=== PATIENT | male | born 1965 | race African-American/Black ===

== ENCOUNTER 2022-05-21 09:04 | Inpatient (IN) | payer OTHER ==
[2022-05-21] MEDS ORDERED: Diltiazem 125 MG/25 ML ONE (09:15)
[2022-05-21] MEDS ORDERED: niCARdipine 25 MG/10 ML VIAL ONE ×2 (09:16→12:32)
[2022-05-21 09:39] LABS: #Basophils 0.1 thou/uL (0.0-0.2); #Eosinphils 0.1 thou/uL (0.0-0.7); #Lymphocytes 1.6 thou/uL (1.20-3.40); #Monocytes 0.9 thou/uL (0.11-0.59); #Neutrophils 10.4 thou/uL (1.40-6.50); %Basophils 0.5 % (0.0-1.0); %Eosinophils 0.8 % (0.0-10.0); %Lymphocytes 12.1 % (21.0-51.0); %Monocytes 6.9 % (0.0-10.0); %Neutrophils 79.7 % (42.0-75.0); Mean Corpuscular HGB CONC 33.9 g/dL (32.0-36.0); Mean Corpuscular Hemoglobin 30.7 pg (27.0-31.0); Mean Corpuscular Volume 90.6 fl (78.0-98.0); Mean Platelet Volume 11.8 fL (7.4-10.4); Platelet Count 166 10x3/uL (130-400); RBC Distribution Width 11.8 % (11.5-14.5); Red Blood Cell (RBC) Count 5.87 mill/uL (4.70-6.10)
[2022-05-21 09:53] LABS: PTT 32.8 sec (22.9-36.1); Prothrombin Time 13.5 sec (12.0-14.7)
[2022-05-21 10:00] LABS: ALT (SGPT) 25 U/L (8-55); AST (SGOT) 19 U/L (5-34); Albumin 3.9 g/dL (3.5-5.0); Alkaline Phosphatase 63 U/L (40-110); Anion Gap 11 mmol/L (10-20); BUN (Urea Nitrogen) 20 mg/dL (8.4-25.7); Calc. Creatinine Clearance 0 mL/min (70-130); Calcium 9.3 mg/dL (7.8-10.44); Carbon Dioxide 25 mmol/L (22-29); Chloride 105 mmol/L (98-107); Estimated GFR 32; Globulin 3.4 g/dL (2.4-3.5); Glucose 101 mg/dL (70-105); Potassium 3.2 mmol/L (3.5-5.1); Protein, Total 7.3 g/dL (6.0-8.3); Sodium 138 mmol/L (136-145)
[2022-05-21] MEDS ORDERED: Electrolyte Replacement Protocol 1 EACH IVPB ONE (10:08)
[2022-05-21] MEDS ORDERED: Ondansetron PF 4 MG/2 ML Vial IVP PRN (10:13)
[2022-05-21] MEDS ORDERED: Ondansetron ODT 4 MG TAB PO PRN (10:13)
[2022-05-21 10:14] LABS: Bacteria/HPF None Seen HPF (None Seen); Bilirubin Negative (Negative); Blood, Urine Trace (Negative); Clarity Clear (Clear); Glucose, Urine (Dipstick) Normal (Negative); Ketone, Urine Negative (Negative); Leukocyte Negative Leu/uL (Negative); Nitrite Negative (Negative); Protein, Urine (Dipstick) 300 mg/dL (Neg-Trace); RBC/HPF 0-3 HPF (0-3); Specific Gravity, Urine 1.012 (1.002-1.036); Squamous Epithelial 0-3 HPF (0-3); Urobilinogen Normal mg/dL (Less than 2); WBC/HPF 0-3 HPF (0-3); pH, Urine 7.5 (5.0-9.0)
[2022-05-21 10:39] LABS: CKMB 3.4 ng/mL (0-6.6)
[2022-05-21] MEDS ORDERED: Electrolyte Replacement Protocol FS PRN (10:45)
[2022-05-21] MEDS ORDERED: Dextrose 50% Abboject 50 ML SYRINGE ONE (11:02)
[2022-05-21] MEDS ORDERED: Rocuronium Bromide 10 MG/ML (10ML VIAL) ONE (11:08)
[2022-05-21] MEDS ORDERED: Midazolam HCl 2 mg/2 ml Vial ONE ×2 (11:17→11:18)
[2022-05-21] MEDS ORDERED: Propofol 1,000 MG/100 ML VIAL IV ONE (11:18)
[2022-05-21] MEDS ORDERED: Fentanyl 100 MCG/2 ML VIAL ONE (11:18)
[2022-05-21] MEDS ORDERED: Fentanyl CADD 100 ML IV SCH ×2 (11:30→12:45)
[2022-05-21 11:31] LABS: SARS-CoV-2 NAA Rapid Test Not Detected (NotDetected)
[2022-05-21 12:13] LABS: Actual Bicarbonate (HCO3a) 26.7 mEq/L (22-28); Analyzer IN Cardio ER; Base Excess (BEa) 2.5 mEq/L (-2.0 to +3.0); CO2 Tension 39.6 mmHg (35.0-45.0); Calcium, Ionized (arterial) 1.18 mmol/L (1.12-1.30); Carboxyhemoglobin (COHb) 0.2 gm% (0.0-3.0); Hemoglobin (Hb) 17.9 g/dL (14.0-18.0); O2 Tension (PaO2), arterial 87.6 mmHg (80.0-100.0); pH, Arterial 7.45 (7.35-7.45)
[2022-05-21 12:15] LABS: Puncture Site RRA
[2022-05-21] MEDS ORDERED: Ventilator Sedation Protocol 1 EACH FS ONE (12:20)
[2022-05-21] MEDS ORDERED: niCARdipine 40MG In NaCl 40 MG/200 ML BAG IVPB SCH (12:30)
[2022-05-21] MEDS ORDERED: DISCONTINUE PREVIOUS NARCOTIC PAIN MEDICATIONS AND BENZODIAZEPINES FS SCH (12:45)
[2022-05-21] MEDS ORDERED: Fentanyl BOLUS 250 ML IVPB PRN (12:45)
[2022-05-21] MEDS ORDERED: Propofol BOLUS 1,000 MG/100 ML VIAL IV PRN (12:45)
[2022-05-21] MEDS ORDERED: niCARdipine 25 MG in Sodium Chloride 0.9% 250 ML 250 ML IVPB SCH (13:00)
[2022-05-21] MEDS: Potassium Chloride 20 MEQ in Premix Bag 1 BAG IVPB SCH ×2 (13:52→13:55)
[2022-05-21] MEDS: Midazolam HCl 2 mg/2 ml Vial SLOW IVP PRN (13:53)
[2022-05-21] MEDS: Sodium Chloride 0.9% 1,000 ML IV SCH (13:55)
[2022-05-21] MEDS: Propofol 1,000 MG/100 ML VIAL IV PRN ×2 (15:57→20:20)
[2022-05-21 17:34] LABS: Potassium 3.6 mmol/L (3.5-5.1)
[2022-05-21 19:04] LABS: Troponin I 0.248 ng/mL (< 0.028)
[2022-05-21] MEDS: Atorvastatin Calcium 40 MG TAB PO SCH (20:37)
[2022-05-21] MEDS: Terazosin HCl 5 MG CAP PO SCH (20:37)
[2022-05-21] MEDS: Carvedilol 25 MG TAB PO SCH (20:37)
[2022-05-21] MEDS: NIFEdipine XL 60 MG TAB PO SCH (20:37)
[2022-05-21 21:30] LABS: Troponin I 0.258 ng/mL (< 0.028)
[2022-05-22] MEDS: Propofol 1,000 MG/100 ML VIAL IV PRN ×3 (00:24→15:09)
[2022-05-22] MEDS: Sodium Chloride 0.9% 1,000 ML IV SCH (03:09)
[2022-05-22] MEDS: Midazolam HCl 2 mg/2 ml Vial SLOW IVP PRN (03:18)
[2022-05-22 03:59] LABS: #Basophils 0.1 thou/uL (0.0-0.2); #Eosinphils 0.1 thou/uL (0.0-0.7); #Lymphocytes 1.4 thou/uL (1.20-3.40); #Monocytes 1.3 thou/uL (0.11-0.59); %Basophils 0.6 % (0.0-1.0); %Eosinophils 0.8 % (0.0-10.0); %Lymphocytes 10.7 % (21.0-51.0); %Monocytes 10.3 % (0.0-10.0); %Neutrophils 77.6 % (42.0-75.0); Hemoglobin 15.6 g/dL (14.0-18.0); Mean Corpuscular HGB CONC 32.3 g/dL (32.0-36.0); Mean Corpuscular Hemoglobin 29.6 pg (27.0-31.0); Mean Corpuscular Volume 91.7 fl (78.0-98.0); Mean Platelet Volume 11.7 fL (7.4-10.4); Platelet Count 161 10x3/uL (130-400); RBC Distribution Width 11.9 % (11.5-14.5); Red Blood Cell (RBC) Count 5.28 mill/uL (4.70-6.10); White Blood Cell (WBC) Count 12.9 10x3/uL (4.8-10.8)
[2022-05-22 04:22] LABS: ALT (SGPT) 14 U/L (8-55); AST (SGOT) 12 U/L (5-34); Albumin 3.2 g/dL (3.5-5.0); Alkaline Phosphatase 53 U/L (40-110); Anion Gap 11 mmol/L (10-20); BUN (Urea Nitrogen) 22 mg/dL (8.4-25.7); Bilirubin, Total 1.3 mg/dL (0.2-1.2); Calc. Creatinine Clearance 41 mL/min (70-130); Calcium 8.6 mg/dL (7.8-10.44); Carbon Dioxide 23 mmol/L (22-29); Chloride 107 mmol/L (98-107); Estimated GFR 29; Globulin 2.9 g/dL (2.4-3.5); Glucose 90 mg/dL (70-105); Potassium 3.3 mmol/L (3.5-5.1); Protein, Total 6.1 g/dL (6.0-8.3); Sodium 138 mmol/L (136-145)
[2022-05-22 07:15] LABS: Actual Bicarbonate (HCO3a) 25.8 mEq/L (22-28); Base Excess (BEa) 2.1 mEq/L (-2.0 to +3.0); CO2 Tension 37.6 mmHg (35.0-45.0); Calcium, Ionized (arterial) 1.21 mmol/L (1.12-1.30); Carboxyhemoglobin (COHb) 0.5 gm% (0.0-3.0); Hemoglobin (Hb) 16.5 g/dL (14.0-18.0); O2 Tension (PaO2), arterial 79.9 mmHg (80.0-100.0); Potassium - ABG Lab 3.32 mmol/L (3.70-5.30); pH, Arterial 7.46 (7.35-7.45)
[2022-05-22 07:17] LABS: Puncture Site RRA
[2022-05-22] MEDS ORDERED: Fentanyl CADD 100 ML ONE (07:27)
[2022-05-22] MEDS: Acetaminophen 325 MG TAB PO PRN ×2 (07:29→19:52)
[2022-05-22] MEDS: NIFEdipine XL 60 MG TAB PO SCH ×2 (07:30→19:53)
[2022-05-22] MEDS: Famotidine/PF 20 mg/2ml Vial SLOW IVP SCH (07:30)
[2022-05-22] MEDS: Carvedilol 25 MG TAB PO SCH ×2 (07:30→19:53)
[2022-05-22] MEDS ORDERED: Sodium Chloride 0.9% 500 ML IV SCH (07:45)
[2022-05-22] MEDS ORDERED: Potassium Chloride 20 MEQ TAB PO SCH (09:00)
[2022-05-22] MEDS ORDERED: cloNIDine 0.3mg/24 Hour PATCH TD SCH (11:15)
[2022-05-22] MEDS ORDERED: Electrolyte Replacement Protocol 1 EACH FS SCH ×2 (11:30)
[2022-05-22] MEDS: Lactated Ringer's 1,000 ML IV SCH ×2 (11:55→23:13)
[2022-05-22 12:20] LABS: Anion Gap 10 mmol/L (10-20); BUN (Urea Nitrogen) 25 mg/dL (8.4-25.7); Calc. Creatinine Clearance 36 mL/min (70-130); Calcium 8.6 mg/dL (7.8-10.44); Carbon Dioxide 22 mmol/L (22-29); Chloride 107 mmol/L (98-107); Estimated GFR 26; Glucose 111 mg/dL (70-105); Potassium 3.4 mmol/L (3.5-5.1); Sodium 136 mmol/L (136-145)
[2022-05-22] MEDS ORDERED: Lactated Ringer's 500 ML IV SCH (12:45)
[2022-05-22] MEDS: Potassium Chloride 20 MEQ TAB PO PRN (16:31)
[2022-05-22] MEDS: Atorvastatin Calcium 40 MG TAB PO SCH (19:53)
[2022-05-22] MEDS: Terazosin HCl 5 MG CAP PO SCH (19:53)
[2022-05-23 04:29] LABS: ALT (SGPT) 15 U/L (8-55); AST (SGOT) 18 U/L (5-34); Albumin 2.8 g/dL (3.5-5.0); Alkaline Phosphatase 47 U/L (40-110); Anion Gap 11 mmol/L (10-20); BUN (Urea Nitrogen) 30 mg/dL (8.4-25.7); Bilirubin, Total 1.3 mg/dL (0.2-1.2); Calc. Creatinine Clearance 39 mL/min (70-130); Calcium 8.9 mg/dL (7.8-10.44); Carbon Dioxide 21 mmol/L (22-29); Chloride 108 mmol/L (98-107); Estimated GFR 28; Glucose 124 mg/dL (70-105); Potassium 3.5 mmol/L (3.5-5.1); Protein, Total 5.8 g/dL (6.0-8.3); Sodium 136 mmol/L (136-145)
[2022-05-23 04:53] LABS: #Eosinphils 0.1 thou/uL (0.0-0.7); #Lymphocytes 1.3 thou/uL (1.20-3.40); #Monocytes 1.4 thou/uL (0.11-0.59); #Neutrophils 11.8 thou/uL (1.40-6.50); %Basophils 0.1 % (0.0-1.0); %Eosinophils 0.5 % (0.0-10.0); %Lymphocytes 8.7 % (21.0-51.0); %Monocytes 9.5 % (0.0-10.0); %Neutrophils 81.2 % (42.0-75.0); Hemoglobin 15.1 g/dL (14.0-18.0); Large Platelets SLIGHT; MDiff Complete? YES; Mean Corpuscular HGB CONC 32.9 g/dL (32.0-36.0); Mean Corpuscular Hemoglobin 30.1 pg (27.0-31.0); Mean Corpuscular Volume 91.5 fl (78.0-98.0); Mean Platelet Volume 12.3 fL (7.4-10.4); Platelet Count 144 10x3/uL (130-400); Platelet Morphology Comment Appears Adequate; RBC Distribution Width 11.8 % (11.5-14.5); Red Blood Cell (RBC) Count 5.02 mill/uL (4.70-6.10); White Blood Cell (WBC) Count 14.5 10x3/uL (4.8-10.8)
[2022-05-23] MEDS: Propofol 1,000 MG/100 ML VIAL IV PRN (05:23)
[2022-05-23 06:53] LABS: Actual Bicarbonate (HCO3a) 25.1 mEq/L (22-28); Base Excess (BEa) 1.2 mEq/L (-2.0 to +3.0); CO2 Tension 37.4 mmHg (35.0-45.0); Calcium, Ionized (arterial) 1.26 mmol/L (1.12-1.30); Carboxyhemoglobin (COHb) 0.7 gm% (0.0-3.0); Hemoglobin (Hb) 15.7 g/dL (14.0-18.0); O2 Tension (PaO2), arterial 100.1 mmHg (80.0-100.0); Potassium - ABG Lab 3.71 mmol/L (3.70-5.30); pH, Arterial 7.44 (7.35-7.45)
[2022-05-23 06:56] LABS: Puncture Site RRA
[2022-05-23] MEDS: Lactated Ringer's 1,000 ML IV SCH (08:06)
[2022-05-23] MEDS: Acetaminophen 325 MG TAB PO PRN (08:06)
[2022-05-23] MEDS: Famotidine/PF 20 mg/2ml Vial SLOW IVP SCH (08:07)
[2022-05-23] MEDS: Potassium Chloride 20 MEQ TAB PO PRN (08:07)
[2022-05-23] MEDS: Carvedilol 25 MG TAB PO SCH ×2 (08:07→20:49)
[2022-05-23] MEDS: NIFEdipine XL 60 MG TAB PO SCH (08:07)
[2022-05-23] MEDS ORDERED: Amlodipine 5 MG TAB PO SCH (19:45)
[2022-05-23] MEDS: Atorvastatin Calcium 40 MG TAB PO SCH (20:50)
[2022-05-23] MEDS: Bisacodyl 5 MG TAB PO PRN (20:50)
[2022-05-23] MEDS: Terazosin HCl 5 MG CAP PO SCH (20:50)
[2022-05-24 03:47] LABS: #Eosinphils 0.1 thou/uL (0.0-0.7); #Monocytes 1.3 thou/uL (0.11-0.59); #Neutrophils 10.9 thou/uL (1.40-6.50); %Basophils 0.2 % (0.0-1.0); %Eosinophils 0.9 % (0.0-10.0); %Lymphocytes 7.6 % (21.0-51.0); %Monocytes 9.8 % (0.0-10.0); %Neutrophils 81.6 % (42.0-75.0); Hemoglobin 14.4 g/dL (14.0-18.0); Mean Corpuscular HGB CONC 32.4 g/dL (32.0-36.0); Mean Corpuscular Hemoglobin 29.7 pg (27.0-31.0); Mean Corpuscular Volume 91.7 fl (78.0-98.0); Mean Platelet Volume 12.9 fL (7.4-10.4); Platelet Count 143 10x3/uL (130-400); RBC Distribution Width 11.9 % (11.5-14.5); Red Blood Cell (RBC) Count 4.87 mill/uL (4.70-6.10); White Blood Cell (WBC) Count 13.4 10x3/uL (4.8-10.8)
[2022-05-24 04:01] LABS: Anion Gap 11 mmol/L (10-20); BUN (Urea Nitrogen) 31 mg/dL (8.4-25.7); Calc. Creatinine Clearance 46 mL/min (70-130); Calcium 8.8 mg/dL (7.8-10.44); Carbon Dioxide 22 mmol/L (22-29); Chloride 111 mmol/L (98-107); Estimated GFR 32; Glucose 112 mg/dL (70-105); Potassium 3.8 mmol/L (3.5-5.1); Sodium 140 mmol/L (136-145)
[2022-05-24] MEDS: hydrALAZINE 20 MG/ML VIAL SLOW IVP PRN ×4 (06:48→12:30)
[2022-05-24 07:20] LABS: Actual Bicarbonate (HCO3a) 24.4 mEq/L (22-28); Base Excess (BEa) 1.2 mEq/L (-2.0 to +3.0); Calcium, Ionized (arterial) 1.26 mmol/L (1.12-1.30); Carboxyhemoglobin (COHb) 0.5 gm% (0.0-3.0); Hemoglobin (Hb) 15.1 g/dL (14.0-18.0); O2 Tension (PaO2), arterial 129.5 mmHg (80.0-100.0); Potassium - ABG Lab 3.82 mmol/L (3.70-5.30); pH, Arterial 7.46 (7.35-7.45)
[2022-05-24 07:22] LABS: Puncture Site RRA
[2022-05-24] MEDS: Famotidine/PF 20 mg/2ml Vial SLOW IVP SCH (07:39)
[2022-05-24] MEDS: Potassium Chloride 20 MEQ TAB PO PRN (07:40)
[2022-05-24] MEDS: Amlodipine 5 MG TAB PO SCH (07:41)
[2022-05-24] MEDS: Lactated Ringer's 1,000 ML IV SCH (07:41)
[2022-05-24] MEDS: Acetaminophen 325 MG TAB PO PRN (07:41)
[2022-05-24] MEDS: Carvedilol 25 MG TAB PO SCH ×2 (07:41→20:16)
[2022-05-24] MEDS ORDERED: levETIRAcetam 500 MG/5 ML VIAL SLOW IVP SCH ×2 (12:15→16:30)
[2022-05-24] MEDS: Cefepime 1 GM in Sodium Chloride 0.9% 100 ML IVPB SCH (14:12)
[2022-05-24] MEDS ORDERED: Vancomycin 1.5 GRAM/300 ML BAG 1.5 GM in Premix Bag 1 BAG IVPB SCH (15:00)
[2022-05-24] MEDS: niCARdipine 25 MG in Sodium Chloride 0.9% 250 ML 250 ML IVPB SCH ×4 (15:38→22:33)
[2022-05-24] MEDS: Acetaminophen 650 MG Suppository PR PRN ×2 (18:53→22:55)
[2022-05-24] MEDS: Atorvastatin Calcium 40 MG TAB PO SCH (20:16)
[2022-05-24] MEDS: Terazosin HCl 5 MG CAP PO SCH (20:17)
[2022-05-24] MEDS: levETIRAcetam 500 MG/5 ML VIAL SLOW IVP SCH (20:18)
[2022-05-24] MEDS ORDERED: Ipratropium/Albuterol 3 ML NEB NEB PRN (20:28)
[2022-05-24] MEDS ORDERED: Cefepime 1 GM in Sodium Chloride 0.9% 100 ML IVPB SCH (21:00)
[2022-05-24] MEDS ORDERED: Vancomycin HCl 1.25 GM in Sodium Chloride 0.9% 250 ML 300 ML IVPB SCH (21:00)
[2022-05-25] MEDS: Cefepime 1 GM in Sodium Chloride 0.9% 100 ML IVPB SCH ×2 (01:13→14:00)
[2022-05-25] MEDS: niCARdipine 25 MG in Sodium Chloride 0.9% 250 ML 250 ML IVPB SCH ×7 (01:13→21:50)
[2022-05-25 04:14] LABS: Anion Gap 18 mmol/L (10-20); BUN (Urea Nitrogen) 30 mg/dL (8.4-25.7); Calc. Creatinine Clearance 53 mL/min (70-130); Calcium 9.4 mg/dL (7.8-10.44); Carbon Dioxide 15 mmol/L (22-29); Chloride 112 mmol/L (98-107); Estimated GFR 38; Glucose 86 mg/dL (70-105); Potassium 4.1 mmol/L (3.5-5.1); Sodium 141 mmol/L (136-145)
[2022-05-25] MEDS ORDERED: Potassium Bicarbonate/Cit Ac 20 MEQ TAB PO PRN (07:45)
[2022-05-25] MEDS: Lactated Ringer's 1,000 ML IV SCH (08:36)
[2022-05-25] MEDS: levETIRAcetam 500 MG/5 ML VIAL SLOW IVP SCH ×2 (08:36→21:42)
[2022-05-25] MEDS: Famotidine/PF 20 mg/2ml Vial SLOW IVP SCH (08:36)
[2022-05-25] MEDS: Amlodipine 5 MG TAB PO SCH (08:39)
[2022-05-25] MEDS: Carvedilol 25 MG TAB PO SCH ×2 (08:40→21:42)
[2022-05-25] MEDS: Acetaminophen 650 MG Suppository PR PRN (12:10)
[2022-05-25] MEDS: Acetaminophen 325 MG TAB PO PRN ×2 (16:39→21:42)
[2022-05-25] MEDS: VANCOMYCIN 1.25 GM/250 ML BAG 1.25 GM in Premix Bag 1 BAG IVPB SCH (18:46)
[2022-05-25] MEDS: Atorvastatin Calcium 40 MG TAB PO SCH (21:42)
[2022-05-25] MEDS: Terazosin HCl 5 MG CAP PO SCH (22:00)
[2022-05-26] MEDS: Acetaminophen 325 MG TAB PO PRN ×4 (02:53→20:27)
[2022-05-26] MEDS: Cefepime 1 GM in Sodium Chloride 0.9% 100 ML IVPB SCH ×2 (02:55→13:03)
[2022-05-26] MEDS: niCARdipine 25 MG in Sodium Chloride 0.9% 250 ML 250 ML IVPB SCH ×7 (03:19→21:30)
[2022-05-26] MEDS: Lactated Ringer's 1,000 ML IV SCH (03:27)
[2022-05-26 07:45] LABS: Anion Gap 12 mmol/L (10-20); BUN (Urea Nitrogen) 37 mg/dL (8.4-25.7); Calc. Creatinine Clearance 63 mL/min (70-130); Carbon Dioxide 19 mmol/L (22-29); Chloride 116 mmol/L (98-107); Estimated GFR 43; Glucose 126 mg/dL (70-105); Potassium 3.6 mmol/L (3.5-5.1); Sodium 143 mmol/L (136-145)
[2022-05-26 07:56] LABS: #Eosinphils 0.1 thou/uL (0.0-0.7); #Lymphocytes 1.2 thou/uL (1.20-3.40); %Basophils 0.2 % (0.0-1.0); %Eosinophils 1.2 % (0.0-10.0); %Lymphocytes 10.2 % (21.0-51.0); %Monocytes 8.9 % (0.0-10.0); %Neutrophils 79.6 % (42.0-75.0); Hemoglobin 14.9 g/dL (14.0-18.0); Mean Corpuscular HGB CONC 32.3 g/dL (32.0-36.0); Mean Corpuscular Hemoglobin 29.4 pg (27.0-31.0); Mean Platelet Volume 12.6 fL (7.4-10.4); Platelet Count 184 10x3/uL (130-400); RBC Distribution Width 11.8 % (11.5-14.5); Red Blood Cell (RBC) Count 5.08 mill/uL (4.70-6.10); White Blood Cell (WBC) Count 11.3 10x3/uL (4.8-10.8)
[2022-05-26] MEDS: Amlodipine 5 MG TAB PO SCH (09:01)
[2022-05-26] MEDS: Famotidine/PF 20 mg/2ml Vial SLOW IVP SCH (09:02)
[2022-05-26] MEDS: Carvedilol 25 MG TAB PO SCH ×2 (09:02→20:25)
[2022-05-26] MEDS: levETIRAcetam 500 MG/5 ML VIAL SLOW IVP SCH ×2 (09:02→20:26)
[2022-05-26] MEDS ORDERED: Amlodipine 5 MG TAB PO SCH (12:45)
[2022-05-26] MEDS ORDERED: Amlodipine 10 MG TAB PO SCH (12:45)
[2022-05-26] MEDS ORDERED: hydrALAZINE 25 MG TAB PO SCH ×3 (15:00→21:45)
[2022-05-26 16:17] LABS: Vancomycin, Trough 11.6 ug/mL
[2022-05-26 16:36] LABS: Bilirubin Negative (Negative); Blood, Urine Trace (Negative); Glucose, Urine (Dipstick) Negative (Negative); Ketone, Urine Trace mg/dL (Negative); Leukocyte Negative (Negative); Nitrite Negative (Negative); Protein, Urine (Dipstick) 100 mg/dL (Neg-Trace); Specific Gravity, Urine 1.025 (1.005-1.030); Urobilinogen 0.2 mg/dL (Less than 2); pH, Urine 5.5 (5.0-9.0)
[2022-05-26 16:38] LABS: CAUTI Indications for Culture Fever or rigors; Clarity Clear (Clear); Urine Culture Reflex No No
[2022-05-26 16:57] LABS: Bacteria/HPF None Seen HPF (None Seen); RBC/HPF None Seen HPF (0-3); Squamous Epithelial None Seen HPF (0-3); WBC/HPF None Seen HPF (0-3)
[2022-05-26] MEDS: VANCOMYCIN 1.25 GM/250 ML BAG 1.25 GM in Premix Bag 1 BAG IVPB SCH (17:42)
[2022-05-26] MEDS: Vancomycin 1.5 GRAM/300 ML BAG 1.5 GM in Premix Bag 1 BAG IVPB SCH (18:14)
[2022-05-26] MEDS: hydrALAZINE 20 MG/ML VIAL SLOW IVP PRN (18:44)
[2022-05-26] MEDS: Morphine 4 MG/ML VIAL SLOW IVP PRN (18:53)
[2022-05-26] MEDS: Atorvastatin Calcium 40 MG TAB PO SCH (20:25)
[2022-05-26] MEDS: Terazosin HCl 5 MG CAP PO SCH (20:27)
[2022-05-27] MEDS: niCARdipine 25 MG in Sodium Chloride 0.9% 250 ML 250 ML IVPB SCH ×2 (00:10→08:21)
[2022-05-27] MEDS: Morphine 4 MG/ML VIAL SLOW IVP PRN ×3 (02:10→09:14)
[2022-05-27] MEDS: Acetaminophen 650 MG Suppository PR PRN ×2 (02:10→05:40)
[2022-05-27] MEDS: Cefepime 1 GM in Sodium Chloride 0.9% 100 ML IVPB SCH ×2 (02:45→13:37)
[2022-05-27 04:18] LABS: Actual Bicarbonate (HCO3a) 19.3 mEq/L (22-28); Base Excess (BEa) -2.9 mEq/L (-2.0 to +3.0); CO2 Tension 27.6 mmHg (35.0-45.0); Hemoglobin (Hb) 14.9 g/dL (14.0-18.0); O2 Tension (PaO2), arterial 77.5 mmHg (80.0-100.0); pH, Arterial 7.46 (7.35-7.45)
[2022-05-27 04:19] LABS: Carboxyhemoglobin (COHb) 0.8 gm% (0.0-3.0); Potassium - ABG Lab 3.85 mmol/L (3.70-5.30)
[2022-05-27 04:20] LABS: Calcium, Ionized (arterial) 1.25 mmol/L (1.12-1.30); Puncture Site LRA
[2022-05-27] MEDS ORDERED: OLANZapine 10 MG VIAL IM SCH (05:15)
[2022-05-27] MEDS: Famotidine/PF 20 mg/2ml Vial SLOW IVP SCH (08:20)
[2022-05-27] MEDS: levETIRAcetam 500 MG/5 ML VIAL SLOW IVP SCH ×2 (08:20→20:21)
[2022-05-27] MEDS: hydrALAZINE 25 MG TAB PO SCH ×3 (08:20→20:20)
[2022-05-27] MEDS: Carvedilol 25 MG TAB PO SCH ×2 (08:21→20:21)
[2022-05-27] MEDS: Amlodipine 10 MG TAB PO SCH (08:21)
[2022-05-27 08:38] LABS: Actual Bicarbonate (HCO3a) 21.4 mEq/L (22-28); Base Excess (BEa) 0.1 mEq/L (-2.0 to +3.0); CO2 Tension 26.8 mmHg (35.0-45.0); Calcium, Ionized (arterial) 1.26 mmol/L (1.12-1.30); Carboxyhemoglobin (COHb) 0.6 gm% (0.0-3.0); Hemoglobin (Hb) 14.8 g/dL (14.0-18.0); O2 Tension (PaO2), arterial 64.2 mmHg (80.0-100.0); Potassium - ABG Lab 3.66 mmol/L (3.70-5.30); pH, Arterial 7.52 (7.35-7.45)
[2022-05-27 08:41] LABS: Puncture Site RRA
[2022-05-27] MEDS ORDERED: Dexmedetomidine In 0.9 % NaCl 100 ML IVPB SCH (10:00)
[2022-05-27] MEDS: Dextrose 5%-Lactated Ringers 1,000 ML IV SCH ×3 (10:03→17:05)
[2022-05-27 12:13] LABS: Anion Gap 12 mmol/L (10-20); BUN (Urea Nitrogen) 38 mg/dL (8.4-25.7); Calc. Creatinine Clearance 59 mL/min (70-130); Calcium 9.1 mg/dL (7.8-10.44); Carbon Dioxide 18 mmol/L (22-29); Chloride 117 mmol/L (98-107); Estimated GFR 39; Glucose 129 mg/dL (70-105); Sodium 143 mmol/L (136-145)
[2022-05-27] MEDS ORDERED: Furosemide 100 MG/10 ML VIAL SLOW IVP SCH (13:30)
[2022-05-27] MEDS: Acetaminophen 325 MG TAB PO PRN ×2 (13:37→18:14)
[2022-05-27] MEDS: Vancomycin 1.5 GRAM/300 ML BAG 1.5 GM in Premix Bag 1 BAG IVPB SCH (17:10)
[2022-05-27] MEDS: cloNIDine 0.1 MG TAB PO SCH (18:14)
[2022-05-27] MEDS: Atorvastatin Calcium 40 MG TAB PO SCH (20:21)
[2022-05-27] MEDS: Terazosin HCl 5 MG CAP PO SCH (20:21)
[2022-05-28] MEDS: Cefepime 1 GM in Sodium Chloride 0.9% 100 ML IVPB SCH (01:03)
[2022-05-28] MEDS: hydrALAZINE 20 MG/ML VIAL SLOW IVP PRN (03:21)
[2022-05-28 03:46] LABS: #Eosinphils 0.1 thou/uL (0.0-0.7); #Lymphocytes 1.3 thou/uL (1.20-3.40); #Monocytes 1.5 thou/uL (0.11-0.59); #Neutrophils 11.8 thou/uL (1.40-6.50); %Basophils 0.2 % (0.0-1.0); %Eosinophils 0.4 % (0.0-10.0); %Lymphocytes 8.6 % (21.0-51.0); %Neutrophils 80.8 % (42.0-75.0); Hemoglobin 13.9 g/dL (14.0-18.0); Mean Corpuscular HGB CONC 33.2 g/dL (32.0-36.0); Mean Corpuscular Hemoglobin 30.2 pg (27.0-31.0); Mean Platelet Volume 12.3 fL (7.4-10.4); Platelet Count 202 10x3/uL (130-400); RBC Distribution Width 12.1 % (11.5-14.5); White Blood Cell (WBC) Count 14.5 10x3/uL (4.8-10.8)
[2022-05-28 03:54] LABS: Anion Gap 13 mmol/L (10-20); BUN (Urea Nitrogen) 47 mg/dL (8.4-25.7); Calc. Creatinine Clearance 51 mL/min (70-130); Calcium 9.1 mg/dL (7.8-10.44); Carbon Dioxide 19 mmol/L (22-29); Chloride 117 mmol/L (98-107); Estimated GFR 33; Glucose 134 mg/dL (70-105); Potassium 3.8 mmol/L (3.5-5.1); Sodium 145 mmol/L (136-145)
[2022-05-28] MEDS: Morphine 4 MG/ML VIAL SLOW IVP PRN (04:27)
[2022-05-28] MEDS ORDERED: Labetalol HCl 100 MG/20 ML VIAL SLOW IVP SCH (05:15)
[2022-05-28] MEDS ORDERED: Labetalol HCl 100 MG/20 ML VIAL SLOW IVP PRN (07:37)
[2022-05-28] MEDS ORDERED: hydrOXYzine 10 MG TAB PO PRN (08:01)
[2022-05-28] MEDS ORDERED: Acetaminophen 325 MG TAB PO SCH (08:15)
[2022-05-28] MEDS: Acetaminophen 650 MG/20.3 ML UDCUP PO SCH ×3 (08:50→20:28)
[2022-05-28] MEDS: hydrALAZINE 25 MG TAB PO SCH ×3 (08:52→20:11)
[2022-05-28] MEDS: cloNIDine 0.1 MG TAB PO SCH ×2 (08:52→20:28)
[2022-05-28] MEDS: Famotidine/PF 20 mg/2ml Vial SLOW IVP SCH (08:53)
[2022-05-28] MEDS: levETIRAcetam 500 MG/5 ML VIAL SLOW IVP SCH ×2 (08:53→20:15)
[2022-05-28] MEDS: Carvedilol 25 MG TAB PO SCH ×2 (08:54→20:11)
[2022-05-28] MEDS: Amlodipine 10 MG TAB PO SCH (08:54)
[2022-05-28] MEDS: ALPRAZolam 0.25 MG TAB PO SCH ×2 (09:00→20:12)
[2022-05-28] MEDS ORDERED: ALPRAZolam 0.25 MG TAB PO SCH (10:30)
[2022-05-28] MEDS ORDERED: Polyethylene Glycol 3350 17 GM Packet PER TUBE PRN (10:50)
[2022-05-28] MEDS: Dextrose 5%-Lactated Ringers 1,000 ML IV SCH (16:22)
[2022-05-28] MEDS ORDERED: Lactated Ringer's 1,000 ML IV SCH (16:30)
[2022-05-28] MEDS: Amoxicillin/Potassium Clav 875 MG TAB PO SCH (20:11)
[2022-05-28] MEDS: Terazosin HCl 5 MG CAP PO SCH (20:11)
[2022-05-28] MEDS: Atorvastatin Calcium 40 MG TAB PO SCH (20:11)
[2022-05-29] MEDS: Labetalol HCl 100 MG/20 ML VIAL SLOW IVP PRN (03:09)
[2022-05-29] MEDS: Acetaminophen 650 MG/20.3 ML UDCUP PO SCH ×4 (03:10→20:30)
[2022-05-29] MEDS: Morphine 4 MG/ML VIAL SLOW IVP PRN (03:21)
[2022-05-29] MEDS: Bisacodyl 5 MG TAB PO PRN (03:42)
[2022-05-29 07:26] LABS: Hemoglobin 13.5 g/dL (14.0-18.0); Mean Corpuscular HGB CONC 33.3 g/dL (32.0-36.0); Mean Corpuscular Hemoglobin 30.7 pg (27.0-31.0); Mean Corpuscular Volume 92.3 fl (78.0-98.0); Mean Platelet Volume 12.4 fL (7.4-10.4); Platelet Count 228 10x3/uL (130-400); RBC Distribution Width 12.2 % (11.5-14.5); White Blood Cell (WBC) Count 14.9 10x3/uL (4.8-10.8)
[2022-05-29] MEDS: ALPRAZolam 0.25 MG TAB PO SCH ×3 (07:33→20:29)
[2022-05-29] MEDS: Amlodipine 10 MG TAB PO SCH (07:35)
[2022-05-29 07:41] LABS: Anion Gap 14 mmol/L (10-20); BUN (Urea Nitrogen) 51 mg/dL (8.4-25.7); Calc. Creatinine Clearance 42 mL/min (70-130); Calcium 9.6 mg/dL (7.8-10.44); Carbon Dioxide 20 mmol/L (22-29); Chloride 118 mmol/L (98-107); Estimated GFR 30; Glucose 129 mg/dL (70-105); Potassium 3.7 mmol/L (3.5-5.1); Sodium 148 mmol/L (136-145)
[2022-05-29] MEDS ORDERED: ALPRAZolam 0.25 MG TAB PO SCH ×2 (07:42→09:00)
[2022-05-29] MEDS ORDERED: ALPRAZolam 0.25 MG TAB PO PRN ×2 (07:44→11:48)
[2022-05-29 08:18] LABS: #Basophils 0.1 thou/uL (0.0-0.2); #Eosinphils 0.1 thou/uL (0.0-0.7); #Lymphocytes 1.2 thou/uL (1.20-3.40); #Monocytes 1.6 thou/uL (0.11-0.59); #Neutrophils 11.9 thou/uL (1.40-6.50); %Basophils 0.5 % (0.0-1.0); %Eosinophils 0.9 % (0.0-10.0); %Lymphocytes 8.2 % (21.0-51.0); %Monocytes 10.5 % (0.0-10.0); %Neutrophils 79.9 % (42.0-75.0); Band 3 % (5-11); Lymphocytes 9 % (21-51); MDiff Complete? YES; Monocytes 8 % (0-10); Neutrophil 80 % (42-75); RBC Morphology Normal
[2022-05-29] MEDS: Carvedilol 25 MG TAB PO SCH ×2 (08:28→20:29)
[2022-05-29] MEDS: levETIRAcetam 500 MG/5 ML VIAL SLOW IVP SCH ×2 (08:28→20:31)
[2022-05-29] MEDS: hydrALAZINE 25 MG TAB PO SCH ×3 (08:28→20:28)
[2022-05-29] MEDS: cloNIDine 0.1 MG TAB PO SCH (08:29)
[2022-05-29] MEDS: Famotidine 20 MG TAB PER TUBE SCH (08:29)
[2022-05-29] MEDS ORDERED: cloNIDine 0.3mg/24 Hour PATCH TD SCH (09:00)
[2022-05-29] MEDS: Amoxicillin/Potassium Clav 875 MG TAB PO SCH ×2 (09:30→20:28)
[2022-05-29] MEDS ORDERED: Magnevist 469MG/ML 20 ML VIAL ONE (10:06)
[2022-05-29] MEDS ORDERED: Furosemide 40 MG/4 ML VIAL SLOW IVP SCH (10:45)
[2022-05-29] MEDS ORDERED: Spironolactone 25 MG TAB PO SCH (11:00)
[2022-05-29] MEDS ORDERED: Lorazepam 2 MG/ML VIAL SLOW IVP SCH (11:45)
[2022-05-29] MEDS: cloNIDine 0.2 MG TAB PO SCH (20:29)
[2022-05-29] MEDS: Atorvastatin Calcium 40 MG TAB PO SCH (20:29)
[2022-05-29] MEDS: Terazosin HCl 5 MG CAP PO SCH (20:30)
[2022-05-30] MEDS: Acetaminophen 650 MG/20.3 ML UDCUP PO SCH ×4 (02:18→20:12)
[2022-05-30 04:38] LABS: #Basophils 0.1 thou/uL (0.0-0.2); #Eosinphils 0.1 thou/uL (0.0-0.7); #Lymphocytes 1.2 thou/uL (1.20-3.40); #Monocytes 1.4 thou/uL (0.11-0.59); #Neutrophils 11.7 thou/uL (1.40-6.50); %Basophils 0.5 % (0.0-1.0); %Lymphocytes 8.1 % (21.0-51.0); %Monocytes 9.8 % (0.0-10.0); %Neutrophils 80.6 % (42.0-75.0); Hemoglobin 13.2 g/dL (14.0-18.0); Mean Corpuscular Hemoglobin 30.8 pg (27.0-31.0); Mean Corpuscular Volume 93.4 fl (78.0-98.0); Mean Platelet Volume 12.6 fL (7.4-10.4); Platelet Count 228 10x3/uL (130-400); Red Blood Cell (RBC) Count 4.28 mill/uL (4.70-6.10); White Blood Cell (WBC) Count 14.5 10x3/uL (4.8-10.8)
[2022-05-30 04:48] LABS: Anion Gap 15 mmol/L (10-20); BUN (Urea Nitrogen) 48 mg/dL (8.4-25.7); Calc. Creatinine Clearance 42 mL/min (70-130); Calcium 9.5 mg/dL (7.8-10.44); Carbon Dioxide 21 mmol/L (22-29); Chloride 118 mmol/L (98-107); Estimated GFR 30; Glucose 131 mg/dL (70-105); Potassium 3.5 mmol/L (3.5-5.1); Sodium 150 mmol/L (136-145)
[2022-05-30] MEDS ORDERED: Spironolactone 25 MG TAB PO SCH (08:00)
[2022-05-30] MEDS: ALPRAZolam 0.25 MG TAB PO SCH ×2 (08:22→20:12)
[2022-05-30] MEDS: Amlodipine 10 MG TAB PO SCH (08:22)
[2022-05-30] MEDS: cloNIDine 0.2 MG TAB PO SCH ×2 (08:22→20:13)
[2022-05-30] MEDS: Spironolactone 25 MG TAB PO SCH (08:22)
[2022-05-30] MEDS: Carvedilol 25 MG TAB PO SCH ×2 (08:22→20:13)
[2022-05-30] MEDS: levETIRAcetam 500 MG/5 ML VIAL SLOW IVP SCH ×2 (08:23→20:13)
[2022-05-30] MEDS: hydrALAZINE 25 MG TAB PO SCH ×3 (08:23→20:13)
[2022-05-30] MEDS: Famotidine 20 MG TAB PER TUBE SCH (08:23)
[2022-05-30] MEDS: Amoxicillin/Potassium Clav 875 MG TAB PO SCH ×2 (08:24→20:13)
[2022-05-30] MEDS ORDERED: Sodium Chloride 0.45% 1,000 ML IV SCH (09:15)
[2022-05-30 16:22] LABS: Anion Gap 14 mmol/L (10-20); BUN (Urea Nitrogen) 52 mg/dL (8.4-25.7); Calc. Creatinine Clearance 48 mL/min (70-130); Calcium 9.7 mg/dL (7.8-10.44); Carbon Dioxide 23 mmol/L (22-29); Chloride 119 mmol/L (98-107); Estimated GFR 32; Glucose 142 mg/dL (70-105); Potassium 3.7 mmol/L (3.5-5.1)
[2022-05-30 16:30] LABS: Sodium 152 mmol/L (136-145)
[2022-05-30] MEDS: Atorvastatin Calcium 40 MG TAB PO SCH (20:13)
[2022-05-30] MEDS: Terazosin HCl 5 MG CAP PO SCH (20:13)
[2022-05-31] MEDS: Acetaminophen 650 MG/20.3 ML UDCUP PO SCH ×4 (02:22→20:25)
[2022-05-31] MEDS: Labetalol HCl 100 MG/20 ML VIAL SLOW IVP PRN ×4 (03:06→15:06)
[2022-05-31 03:36] LABS: #Basophils 0.1 thou/uL (0.0-0.2); #Eosinphils 0.2 thou/uL (0.0-0.7); #Lymphocytes 1.2 thou/uL (1.20-3.40); #Monocytes 1.1 thou/uL (0.11-0.59); #Neutrophils 11.8 thou/uL (1.40-6.50); %Basophils 0.5 % (0.0-1.0); %Eosinophils 1.1 % (0.0-10.0); %Lymphocytes 8.1 % (21.0-51.0); %Monocytes 7.6 % (0.0-10.0); %Neutrophils 82.8 % (42.0-75.0); Hemoglobin 13.7 g/dL (14.0-18.0); Mean Corpuscular HGB CONC 32.7 g/dL (32.0-36.0); Mean Corpuscular Hemoglobin 30.7 pg (27.0-31.0); Mean Corpuscular Volume 93.8 fl (78.0-98.0); Mean Platelet Volume 12.5 fL (7.4-10.4); Platelet Count 257 10x3/uL (130-400); RBC Distribution Width 12.1 % (11.5-14.5); Red Blood Cell (RBC) Count 4.46 mill/uL (4.70-6.10); White Blood Cell (WBC) Count 14.3 10x3/uL (4.8-10.8)
[2022-05-31 03:47] LABS: Anion Gap 16 mmol/L (10-20); BUN (Urea Nitrogen) 52 mg/dL (8.4-25.7); Calc. Creatinine Clearance 45 mL/min (70-130); Calcium 9.8 mg/dL (7.8-10.44); Carbon Dioxide 22 mmol/L (22-29); Chloride 117 mmol/L (98-107); Estimated GFR 30; Glucose 148 mg/dL (70-105); Potassium 3.9 mmol/L (3.5-5.1)
[2022-05-31 03:54] LABS: Sodium 151 mmol/L (136-145)
[2022-05-31] MEDS: ALPRAZolam 0.25 MG TAB PO SCH ×2 (07:32→20:26)
[2022-05-31] MEDS: Amlodipine 10 MG TAB PO SCH (07:33)
[2022-05-31] MEDS: cloNIDine 0.2 MG TAB PO SCH ×2 (07:34→20:27)
[2022-05-31] MEDS: hydrALAZINE 25 MG TAB PO SCH ×3 (08:56→20:26)
[2022-05-31] MEDS: Carvedilol 25 MG TAB PO SCH ×2 (08:56→20:27)
[2022-05-31] MEDS: Famotidine 20 MG TAB PER TUBE SCH (08:57)
[2022-05-31] MEDS: levETIRAcetam 500 MG/5 ML VIAL SLOW IVP SCH ×2 (08:58→20:25)
[2022-05-31] MEDS: Amoxicillin/Potassium Clav 875 MG TAB PO SCH (08:58)
[2022-05-31] MEDS: Spironolactone 25 MG TAB PO SCH (08:58)
[2022-05-31] MEDS: Dextrose 5% in Water 1,000 ML IV SCH ×2 (09:10→22:08)
[2022-05-31] MEDS: Bisacodyl 5 MG TAB PO PRN (10:48)
[2022-05-31 14:05] LABS: Actual Bicarbonate (HCO3v) 25 mEq/L (22-28); Base Excess 2.4 mEq/L (-2.0 to +3.0); Calcium, Ionized (venous) 1.29 mmol/L (1.16-1.32); Chloride (VBG) 116 mmol/L (98-106); Hemoglobin (Hb) 14.5 g/dL (13.1-17.2); Potassium (VBG) 4.13 mmol/L (3.70-5.30); Sodium 150.5 mmol/L (133-146); pH (venous) 7.49 (7.32-7.43)
[2022-05-31] MEDS ORDERED: Dexmedetomidine In 0.9 % NaCl 100 ML IVPB SCH ×2 (14:45→18:00)
[2022-05-31 14:50] LABS: Anion Gap 15 mmol/L (10-20); BUN (Urea Nitrogen) 50 mg/dL (8.4-25.7); Calc. Creatinine Clearance 49 mL/min (70-130); Calcium 9.6 mg/dL (7.8-10.44); Carbon Dioxide 21 mmol/L (22-29); Chloride 115 mmol/L (98-107); Estimated GFR 34; Glucose 184 mg/dL (70-105); Sodium 147 mmol/L (136-145)
[2022-05-31 14:57] LABS: Troponin I 0.259 ng/mL (< 0.028)
[2022-05-31] MEDS ORDERED: Meropenem 1 GM in Sodium Chloride 0.9% 100 ML IVPB SCH ×2 (16:20→17:00)
[2022-05-31] MEDS ORDERED: HumaLOG 300 UNITS/3 ML VIAL SC PRN (17:15)
[2022-05-31] MEDS ORDERED: Dextrose 50% Abboject 50 ML SYRINGE IVP PRN (17:15)
[2022-05-31] MEDS ORDERED: Dextrose 5% in Water 1,000 ML IV PRN (17:15)
[2022-05-31] MEDS ORDERED: Propofol 1,000 MG/100 ML VIAL IV ONE (17:34)
[2022-05-31] MEDS ORDERED: Ventilator Sedation Protocol 1 EACH FS PRN (18:00)
[2022-05-31] MEDS ORDERED: PROPOFOL 200 MG/20 ML VIAL ONE (18:06)
[2022-05-31] MEDS ORDERED: DISCONTINUE PREVIOUS NARCOTIC PAIN MEDICATIONS AND BENZODIAZEPINES FS SCH (18:30)
[2022-05-31] MEDS ORDERED: Propofol BOLUS 1,000 MG/100 ML VIAL IV PRN (18:30)
[2022-05-31 19:10] LABS: Actual Bicarbonate (HCO3v) 19 mEq/L (22-28); Base Excess -2.3 mEq/L (-2.0 to +3.0); Calcium, Ionized (venous) 1.17 mmol/L (1.16-1.32); Chloride (VBG) 116 mmol/L (98-106); Hemoglobin (Hb) 13.9 g/dL (13.1-17.2); Potassium (VBG) 4.09 mmol/L (3.70-5.30); Sodium 147.6 mmol/L (133-146)
[2022-05-31] MEDS: Midazolam HCl 2 mg/2 ml Vial SLOW IVP PRN (19:44)
[2022-05-31] MEDS: Terazosin HCl 5 MG CAP PO SCH (20:26)
[2022-05-31] MEDS: Atorvastatin Calcium 40 MG TAB PO SCH (20:27)
[2022-05-31] MEDS: NICARDIPINE IVPB SCH (21:58)
[2022-05-31] MEDS: DEXTROSE 5% IVPB SCH (21:58)
[2022-05-31] MEDS: WATER IVPB SCH (21:58)
[2022-05-31] MEDS: Propofol 1,000 MG/100 ML VIAL IV PRN (21:58)
[2022-06-01] MEDS: Meropenem 1 GM in Sodium Chloride 0.9% 100 ML IVPB SCH ×2 (01:42→13:07)
[2022-06-01] MEDS: Acetaminophen 650 MG/20.3 ML UDCUP PO SCH ×2 (03:28→08:39)
[2022-06-01] MEDS: Propofol 1,000 MG/100 ML VIAL IV PRN ×3 (03:29→18:16)
[2022-06-01 06:53] LABS: Actual Bicarbonate (HCO3a) 23.8 mEq/L (22-28); Base Excess (BEa) -0.1 mEq/L (-2.0 to +3.0); CO2 Tension 36.6 mmHg (35.0-45.0); Calcium, Ionized (arterial) 1.29 mmol/L (1.12-1.30); Carboxyhemoglobin (COHb) 0.6 gm% (0.0-3.0); Hemoglobin (Hb) 13.4 g/dL (14.0-18.0); O2 Tension (PaO2), arterial 128.8 mmHg (80.0-100.0); pH, Arterial 7.43 (7.35-7.45)
[2022-06-01 06:57] LABS: Puncture Site LRA
[2022-06-01] MEDS: levETIRAcetam 500 MG/5 ML VIAL SLOW IVP SCH ×2 (08:39→20:27)
[2022-06-01] MEDS: hydrALAZINE 25 MG TAB PO SCH (08:40)
[2022-06-01] MEDS: Carvedilol 25 MG TAB PO SCH (08:40)
[2022-06-01] MEDS: cloNIDine 0.2 MG TAB PO SCH ×2 (08:41→09:21)
[2022-06-01] MEDS: Amlodipine 10 MG TAB PO SCH (08:41)
[2022-06-01] MEDS: ALPRAZolam 0.25 MG TAB PO SCH (08:41)
[2022-06-01] MEDS: Famotidine 20 MG TAB PER TUBE SCH (08:41)
[2022-06-01] MEDS: Spironolactone 25 MG TAB PO SCH (08:41)
[2022-06-01] MEDS ORDERED: hydrOXYzine 10 MG TAB PER TUBE PRN (09:30)
[2022-06-01] MEDS: hydrALAZINE 25 MG TAB PER TUBE SCH ×2 (15:29→20:28)
[2022-06-01 16:49] LABS: #Basophils 0.1 thou/uL (0.0-0.2); #Eosinphils 0.5 thou/uL (0.0-0.7); #Lymphocytes 1.3 thou/uL (1.20-3.40); #Monocytes 1.4 thou/uL (0.11-0.59); #Neutrophils 12.7 thou/uL (1.40-6.50); %Basophils 0.6 % (0.0-1.0); %Eosinophils 3.3 % (0.0-10.0); %Lymphocytes 7.8 % (21.0-51.0); %Monocytes 8.9 % (0.0-10.0); %Neutrophils 79.4 % (42.0-75.0); Hemoglobin 13.6 g/dL (14.0-18.0); Mean Corpuscular HGB CONC 31.9 g/dL (32.0-36.0); Mean Corpuscular Hemoglobin 29.7 pg (27.0-31.0); Mean Corpuscular Volume 93.3 fl (78.0-98.0); Mean Platelet Volume 12.2 fL (7.4-10.4); Platelet Count 276 10x3/uL (130-400); RBC Distribution Width 12.1 % (11.5-14.5); Red Blood Cell (RBC) Count 4.56 mill/uL (4.70-6.10)
[2022-06-01 17:05] LABS: Anion Gap 13 mmol/L (10-20); BUN (Urea Nitrogen) 50 mg/dL (8.4-25.7); Calc. Creatinine Clearance 47 mL/min (70-130); Calcium 9.4 mg/dL (7.8-10.44); Carbon Dioxide 20 mmol/L (22-29); Chloride 115 mmol/L (98-107); Estimated GFR 33; Glucose 110 mg/dL (70-105); Potassium 4.2 mmol/L (3.5-5.1); Sodium 144 mmol/L (136-145)
[2022-06-01] MEDS: Terazosin HCl 5 MG CAP PER TUBE SCH (20:27)
[2022-06-01] MEDS: Atorvastatin Calcium 40 MG TAB PO SCH (20:27)
[2022-06-01] MEDS: Carvedilol 25 MG TAB PER TUBE SCH (20:28)
[2022-06-02] MEDS: Labetalol HCl 100 MG/20 ML VIAL SLOW IVP PRN (00:09)
[2022-06-02] MEDS: Meropenem 1 GM in Sodium Chloride 0.9% 100 ML IVPB SCH ×2 (00:10→12:54)
[2022-06-02] MEDS: WATER IVPB SCH ×3 (02:02→07:31)
[2022-06-02] MEDS: DEXTROSE 5% IVPB SCH ×3 (02:02→07:31)
[2022-06-02] MEDS: NICARDIPINE IVPB SCH ×3 (02:02→07:31)
[2022-06-02 05:02] LABS: #Basophils 0.1 thou/uL (0.0-0.2); #Eosinphils 0.4 thou/uL (0.0-0.7); #Lymphocytes 1.3 thou/uL (1.20-3.40); #Monocytes 1.2 thou/uL (0.11-0.59); #Neutrophils 11.2 thou/uL (1.40-6.50); %Basophils 0.4 % (0.0-1.0); %Eosinophils 2.6 % (0.0-10.0); %Lymphocytes 9.4 % (21.0-51.0); %Monocytes 8.5 % (0.0-10.0); %Neutrophils 79.2 % (42.0-75.0); Hemoglobin 13.2 g/dL (14.0-18.0); Mean Corpuscular HGB CONC 32.5 g/dL (32.0-36.0); Mean Corpuscular Hemoglobin 30.2 pg (27.0-31.0); Mean Corpuscular Volume 92.9 fl (78.0-98.0); Mean Platelet Volume 12.7 fL (7.4-10.4); Platelet Count 278 10x3/uL (130-400); RBC Distribution Width 12.2 % (11.5-14.5); Red Blood Cell (RBC) Count 4.37 mill/uL (4.70-6.10); White Blood Cell (WBC) Count 14.1 10x3/uL (4.8-10.8)
[2022-06-02] MEDS: Propofol 1,000 MG/100 ML VIAL IV PRN ×2 (05:10→17:01)
[2022-06-02 05:27] LABS: Anion Gap 10 mmol/L (10-20); BUN (Urea Nitrogen) 48 mg/dL (8.4-25.7); Calc. Creatinine Clearance 47 mL/min (70-130); Calcium 9.5 mg/dL (7.8-10.44); Carbon Dioxide 24 mmol/L (22-29); Chloride 115 mmol/L (98-107); Estimated GFR 32; Glucose 136 mg/dL (70-105); Potassium 3.9 mmol/L (3.5-5.1); Sodium 145 mmol/L (136-145)
[2022-06-02 06:29] LABS: Base Excess (BEa) 2.2 mEq/L (-2.0 to +3.0); CO2 Tension 33.6 mmHg (35.0-45.0); Calcium, Ionized (arterial) 1.29 mmol/L (1.12-1.30); Carboxyhemoglobin (COHb) 0.6 gm% (0.0-3.0); Hemoglobin (Hb) 14.4 g/dL (14.0-18.0); O2 Tension (PaO2), arterial 70.5 mmHg (80.0-100.0); Potassium - ABG Lab 3.81 mmol/L (3.70-5.30); pH, Arterial 7.49 (7.35-7.45)
[2022-06-02 07:31] LABS: Puncture Site LRA
[2022-06-02] MEDS: hydrALAZINE 20 MG/ML VIAL SLOW IVP PRN (07:36)
[2022-06-02] MEDS: levETIRAcetam 500 MG/5 ML VIAL SLOW IVP SCH ×2 (08:39→21:20)
[2022-06-02] MEDS: Carvedilol 25 MG TAB PER TUBE SCH ×2 (08:39→21:20)
[2022-06-02] MEDS: Famotidine 20 MG TAB PER TUBE SCH (08:40)
[2022-06-02] MEDS: Spironolactone 25 MG TAB PER TUBE SCH (08:40)
[2022-06-02] MEDS: hydrALAZINE 25 MG TAB PER TUBE SCH ×3 (08:40→21:21)
[2022-06-02] MEDS: Amlodipine 10 MG TAB PER TUBE SCH (08:40)
[2022-06-02] MEDS: niCARdipine 25 MG in Sodium Chloride 0.9% 250 ML 250 ML IVPB SCH ×4 (10:06→22:59)
[2022-06-02] MEDS: Atorvastatin Calcium 40 MG TAB PO SCH (21:20)
[2022-06-02] MEDS: Terazosin HCl 5 MG CAP PER TUBE SCH (21:20)
[2022-06-02] MEDS: cloNIDine 0.2 MG TAB PER TUBE SCH (21:20)
[2022-06-03] MEDS: Meropenem 1 GM in Sodium Chloride 0.9% 100 ML IVPB SCH ×2 (00:37→12:44)
[2022-06-03] MEDS: niCARdipine 25 MG in Sodium Chloride 0.9% 250 ML 250 ML IVPB SCH ×3 (03:27→10:07)
[2022-06-03] MEDS: Propofol 1,000 MG/100 ML VIAL IV PRN (05:23)
[2022-06-03 05:34] LABS: #Basophils 0.1 thou/uL (0.0-0.2); #Eosinphils 0.2 thou/uL (0.0-0.7); #Lymphocytes 1.1 thou/uL (1.20-3.40); #Monocytes 1.1 thou/uL (0.11-0.59); %Basophils 0.4 % (0.0-1.0); %Eosinophils 1.4 % (0.0-10.0); %Lymphocytes 8.5 % (21.0-51.0); %Monocytes 8.1 % (0.0-10.0); %Neutrophils 81.6 % (42.0-75.0); Hemoglobin 12.3 g/dL (14.0-18.0); Mean Corpuscular HGB CONC 32.4 g/dL (32.0-36.0); Mean Corpuscular Hemoglobin 30.3 pg (27.0-31.0); Mean Corpuscular Volume 93.4 fl (78.0-98.0); Mean Platelet Volume 12.8 fL (7.4-10.4); Platelet Count 273 10x3/uL (130-400); Red Blood Cell (RBC) Count 4.07 mill/uL (4.70-6.10); White Blood Cell (WBC) Count 13.5 10x3/uL (4.8-10.8)
[2022-06-03 05:56] LABS: Anion Gap 13 mmol/L (10-20); BUN (Urea Nitrogen) 47 mg/dL (8.4-25.7); Calc. Creatinine Clearance 56 mL/min (70-130); Calcium 9.3 mg/dL (7.8-10.44); Carbon Dioxide 23 mmol/L (22-29); Chloride 113 mmol/L (98-107); Estimated GFR 39; Glucose 122 mg/dL (70-105); Potassium 4.6 mmol/L (3.5-5.1); Sodium 144 mmol/L (136-145)
[2022-06-03 07:00] LABS: Actual Bicarbonate (HCO3a) 21.2 mEq/L (22-28); Base Excess (BEa) -1.4 mEq/L (-2.0 to +3.0); Calcium, Ionized (arterial) 1.24 mmol/L (1.12-1.30); Carboxyhemoglobin (COHb) 0.4 gm% (0.0-3.0); Hemoglobin (Hb) 13.1 g/dL (14.0-18.0); O2 Tension (PaO2), arterial 97.7 mmHg (80.0-100.0); pH, Arterial 7.47 (7.35-7.45)
[2022-06-03 07:47] LABS: Puncture Site LRA
[2022-06-03] MEDS ORDERED: Furosemide 40 MG/4 ML VIAL SLOW IVP SCH (09:00)
[2022-06-03] MEDS: levETIRAcetam 500 MG/5 ML VIAL SLOW IVP SCH ×2 (10:12→20:28)
[2022-06-03] MEDS: Amlodipine 10 MG TAB PER TUBE SCH (10:14)
[2022-06-03] MEDS: Famotidine 20 MG TAB PER TUBE SCH (10:14)
[2022-06-03] MEDS: Spironolactone 25 MG TAB PER TUBE SCH (10:15)
[2022-06-03] MEDS: Carvedilol 25 MG TAB PER TUBE SCH ×2 (10:15→20:28)
[2022-06-03] MEDS ORDERED: Furosemide 20 MG/2 ML VIAL SLOW IVP SCH (10:15)
[2022-06-03] MEDS: cloNIDine 0.2 MG TAB PER TUBE SCH (10:15)
[2022-06-03] MEDS: hydrALAZINE 25 MG TAB PER TUBE SCH ×3 (10:15→20:28)
[2022-06-03] MEDS ORDERED: Magnesium 2 GM/50 ML(in water) 2 GM in Premix Bag 1 BAG IVPB SCH (19:15)
[2022-06-03] MEDS: cloNIDine 0.3 MG TAB PO SCH (20:28)
[2022-06-03] MEDS: Atorvastatin Calcium 40 MG TAB PO SCH (20:28)
[2022-06-03] MEDS: Terazosin HCl 5 MG CAP PER TUBE SCH (20:28)
[2022-06-04] MEDS: Meropenem 1 GM in Sodium Chloride 0.9% 100 ML IVPB SCH (00:24)
[2022-06-04 05:47] LABS: Anion Gap 13 mmol/L (10-20); BUN (Urea Nitrogen) 53 mg/dL (8.4-25.7); Calc. Creatinine Clearance 50 mL/min (70-130); Calcium 9.6 mg/dL (7.8-10.44); Carbon Dioxide 24 mmol/L (22-29); Chloride 115 mmol/L (98-107); Estimated GFR 36; Glucose 97 mg/dL (70-105); Potassium 4.5 mmol/L (3.5-5.1); Sodium 147 mmol/L (136-145)
[2022-06-04 06:12] LABS: #Basophils 0.1 thou/uL (0.0-0.2); #Eosinphils 0.1 thou/uL (0.0-0.7); #Monocytes 1.1 thou/uL (0.11-0.59); %Basophils 0.5 % (0.0-1.0); %Lymphocytes 7.3 % (21.0-51.0); %Monocytes 8.6 % (0.0-10.0); %Neutrophils 82.6 % (42.0-75.0); Large Platelets SLIGHT; MDiff Complete? YES; Mean Corpuscular HGB CONC 31.7 g/dL (32.0-36.0); Mean Corpuscular Hemoglobin 29.3 pg (27.0-31.0); Mean Corpuscular Volume 92.4 fl (78.0-98.0); Mean Platelet Volume 12.8 fL (7.4-10.4); Platelet Count 270 10x3/uL (130-400); Platelet Morphology Comment Appears Adequate; Polychromasia SLIGHT = 2-3 cells (100X) (0-2/hpf); Red Blood Cell (RBC) Count 4.11 mill/uL (4.70-6.10); White Blood Cell (WBC) Count 13.3 10x3/uL (4.8-10.8)
[2022-06-04] MEDS: niCARdipine 25 MG in Sodium Chloride 0.9% 250 ML 250 ML IVPB SCH ×2 (07:14→17:10)
[2022-06-04 07:20] LABS: Actual Bicarbonate (HCO3a) 23.9 mEq/L (22-28); Base Excess (BEa) 0.4 mEq/L (-2.0 to +3.0); Carboxyhemoglobin (COHb) 0.6 gm% (0.0-3.0); Hemoglobin (Hb) 13.5 g/dL (14.0-18.0); O2 Tension (PaO2), arterial 109.5 mmHg (80.0-100.0); Potassium - ABG Lab 4.46 mmol/L (3.70-5.30); pH, Arterial 7.45 (7.35-7.45)
[2022-06-04 07:21] LABS: Puncture Site RRA
[2022-06-04] MEDS ORDERED: Fentanyl 100 MCG/2 ML VIAL SLOW IVP PRN (07:31)
[2022-06-04] MEDS ORDERED: Midazolam HCl 2 mg/2 ml Vial SLOW IVP PRN (07:32)
[2022-06-04] MEDS ORDERED: Vecuronium 10 MG VIAL IV PRN (07:33)
[2022-06-04] MEDS ORDERED: Midazolam HCl 5 mg/5 ml Vial SLOW IVP PRN (07:33)
[2022-06-04] MEDS ORDERED: Lidocaine 1% w/Epinephrine 1:100K 20 ML VIAL IJ PRN (07:39)
[2022-06-04] MEDS: Midazolam HCl 2 mg/2 ml Vial SLOW IVP PRN ×2 (08:02→10:12)
[2022-06-04] MEDS: levETIRAcetam 500 MG/5 ML VIAL SLOW IVP SCH ×2 (08:06→21:11)
[2022-06-04] MEDS ORDERED: Sterile Water 10 ML ONE (08:29)
[2022-06-04] MEDS: Propofol 1,000 MG/100 ML VIAL IV PRN ×2 (09:12→14:52)
[2022-06-04] MEDS: Fentanyl 100 MCG/2 ML VIAL SLOW IVP PRN ×2 (10:10→10:53)
[2022-06-04] MEDS: Cefepime 1 GM in Sodium Chloride 0.9% 100 ML IVPB SCH (12:59)
[2022-06-04] MEDS: Amlodipine 10 MG TAB PER TUBE SCH (13:00)
[2022-06-04] MEDS: Terazosin HCl 5 MG CAP PER TUBE SCH ×2 (13:10→21:10)
[2022-06-04] MEDS: cloNIDine 0.3 MG TAB PO SCH ×2 (13:10→21:10)
[2022-06-04] MEDS: Famotidine 20 MG TAB PER TUBE SCH (13:10)
[2022-06-04] MEDS: hydrALAZINE 25 MG TAB PER TUBE SCH ×3 (13:10→21:10)
[2022-06-04] MEDS: Carvedilol 25 MG TAB PER TUBE SCH ×2 (13:10→21:11)
[2022-06-04] MEDS: Spironolactone 25 MG TAB PER TUBE SCH (13:12)
[2022-06-04 14:54] VITALS: BMI 29.2
[2022-06-04] MEDS: Atorvastatin Calcium 40 MG TAB PO SCH (21:10)
[2022-06-05] MEDS: Cefepime 1 GM in Sodium Chloride 0.9% 100 ML IVPB SCH ×2 (00:35→14:02)
[2022-06-05 04:10] LABS: #Basophils 0.1 thou/uL (0.0-0.2); #Eosinphils 0.2 thou/uL (0.0-0.7); #Lymphocytes 1.1 thou/uL (1.20-3.40); #Monocytes 0.9 thou/uL (0.11-0.59); #Neutrophils 8.6 thou/uL (1.40-6.50); %Basophils 0.8 % (0.0-1.0); %Lymphocytes 10.1 % (21.0-51.0); %Monocytes 8.6 % (0.0-10.0); %Neutrophils 78.5 % (42.0-75.0); Hemoglobin 12.1 g/dL (14.0-18.0); Mean Corpuscular Hemoglobin 30.8 pg (27.0-31.0); Mean Corpuscular Volume 93.4 fl (78.0-98.0); Mean Platelet Volume 12.6 fL (7.4-10.4); Platelet Count 291 10x3/uL (130-400); RBC Distribution Width 11.9 % (11.5-14.5); Red Blood Cell (RBC) Count 3.92 mill/uL (4.70-6.10); White Blood Cell (WBC) Count 10.9 10x3/uL (4.8-10.8)
[2022-06-05 04:49] LABS: Anion Gap 13 mmol/L (10-20); BUN (Urea Nitrogen) 57 mg/dL (8.4-25.7); Calc. Creatinine Clearance 52 mL/min (70-130); Calcium 9.4 mg/dL (7.8-10.44); Carbon Dioxide 23 mmol/L (22-29); Chloride 115 mmol/L (98-107); Estimated GFR 38; Glucose 89 mg/dL (70-105); Potassium 4.4 mmol/L (3.5-5.1); Sodium 147 mmol/L (136-145)
[2022-06-05 07:32] LABS: Actual Bicarbonate (HCO3a) 26.1 mEq/L (22-28); Base Excess (BEa) 1.2 mEq/L (-2.0 to +3.0); CO2 Tension 42.4 mmHg (35.0-45.0); Calcium, Ionized (arterial) 1.31 mmol/L (1.12-1.30); Carboxyhemoglobin (COHb) 0.4 gm% (0.0-3.0); O2 Tension (PaO2), arterial 144.7 mmHg (80.0-100.0); Potassium - ABG Lab 4.53 mmol/L (3.70-5.30); pH, Arterial 7.41 (7.35-7.45)
[2022-06-05 07:40] LABS: Puncture Site RRA
[2022-06-05] MEDS ORDERED: levETIRAcetam 500 mg/5 ml Oral Solution PER TUBE SCH (09:00)
[2022-06-05] MEDS: Terazosin HCl 5 MG CAP PER TUBE SCH (09:25)
[2022-06-05] MEDS: Amlodipine 10 MG TAB PER TUBE SCH (09:25)
[2022-06-05] MEDS: hydrALAZINE 25 MG TAB PER TUBE SCH ×2 (09:26→14:00)
[2022-06-05] MEDS: Famotidine 20 MG TAB PER TUBE SCH (09:26)
[2022-06-05] MEDS: cloNIDine 0.3 MG TAB PO SCH (09:27)
[2022-06-05] MEDS: Carvedilol 25 MG TAB PER TUBE SCH (09:29)
[2022-06-05] MEDS: levETIRAcetam 500 MG/5 ML VIAL SLOW IVP SCH (09:30)
[2022-06-05] MEDS: Morphine 4 MG/ML VIAL SLOW IVP PRN ×2 (15:58→18:22)
[2022-06-05 16:08] VITALS: TEMP 98.6
[2022-06-05 17:47] VITALS: BP 141/89
== END 2022-06-05 18:40 | DRG 4 ==
LOC: ERS 09:04 → ERHOLD 09:43 → CCU 13:13
PROVIDERS: ADMIT Emergency Medicine; ATTEND Emergency Medicine
PROC: 0DH67UZ Insertion of Feeding Device into Stomach, Via Natural or Artificial Opening (ICD-10-PCS; principal; 2022-05-21)
PROC: 3E0G76Z Introduction of Nutritional Substance into Upper GI, Via Natural or Artificial Opening (ICD-10-PCS; 2022-05-21)
PROC: 0BH17EZ Insertion of Endotracheal Airway into Trachea, Via Natural or Artificial Opening (ICD-10-PCS; 2022-05-21)
PROC: 5A1945Z Respiratory Ventilation, 24-96 Consecutive Hours (ICD-10-PCS; 2022-05-21)
PROC: 5A1955Z Respiratory Ventilation, Greater than 96 Consecutive Hours (ICD-10-PCS; 2022-05-31)
PROC: 0BH17EZ Insertion of Endotracheal Airway into Trachea, Via Natural or Artificial Opening (ICD-10-PCS; 2022-05-31)
PROC: 0B113F4 Bypass Trachea to Cutaneous with Tracheostomy Device, Percutaneous Approach (ICD-10-PCS; 2022-06-04)
PROC: 0DH63UZ Insertion of Feeding Device into Stomach, Percutaneous Approach (ICD-10-PCS; 2022-06-04)
PROC: 3E0G76Z Introduction of Nutritional Substance into Upper GI, Via Natural or Artificial Opening (ICD-10-PCS; 2022-06-04)
DX: I61.5 Nontraumatic intracerebral hemorrhage, intraventricular (principal); A41.52 Sepsis due to Pseudomonas; G93.41 Metabolic encephalopathy; J96.01 Acute respiratory failure with hypoxia; J69.0 Pneumonitis due to inhalation of food and vomit; J15.1 Pneumonia due to Pseudomonas; G81.94 Hemiplegia, unspecified affecting left nondominant side; I16.1 Hypertensive emergency; N17.9 Acute kidney failure, unspecified; J98.11 Atelectasis; I24.8 Other forms of acute ischemic heart disease; E87.29 Other acidosis; E87.3 Alkalosis; J81.1 Chronic pulmonary edema; E87.0 Hyperosmolality and hypernatremia; Z20.822 Contact with and (suspected) exposure to COVID-19; I61.2 Nontraumatic intracerebral hemorrhage in hemisphere, unspecified; N18.9 Chronic kidney disease, unspecified; R25.1 Tremor, unspecified; F41.9 Anxiety disorder, unspecified; I70.1 Atherosclerosis of renal artery; R29.704 NIHSS score 4; E87.6 Hypokalemia; I48.91 Unspecified atrial fibrillation; D63.1 Anemia in chronic kidney disease; E78.5 Hyperlipidemia, unspecified; R13.10 Dysphagia, unspecified; I12.9 Hypertensive chronic kidney disease with stage 1 through stage 4 chronic kidney disease, or unspecified chronic kidney disease; Z79.82 Long term (current) use of aspirin; Z79.899 Other long term (current) drug therapy; Z82.49 Family history of ischemic heart disease and other diseases of the circulatory system; Z82.3 Family history of stroke; Z80.1 Family history of malignant neoplasm of trachea, bronchus and lung; Z78.1 Physical restraint status
CPT/HCPCS: 31500; 36415; 36416; 36600; 51702; 70450; 70551; 71045; 74018; 74185; 76770; 80048; 80053; 80202; 81001; 81003; 81015; 82553; 82805; 83930; 83935; 84145; 84300; 84443; 84484; 85025; 85379; 85610; 85730; 87040; 87070; 87077; 87081; 87186; 87205; 87811; 93005; 93010; 93306; 93880; 93970; 93975; 94002; 94003; 94640; 94760; 95712; 95816; 95819; 95957; 96365; 96366; 96375; 96376; A9579; C8902; J0360; J0692; J1940; J1953; J2185; J2250; J2270; J2405; J2704; J3010; J3370; J3480; J3490; J7050; J7070; J7120; J7620; J7999; S0028

== ENCOUNTER 2023-05-29 18:27 | Inpatient (IN) | payer OTHER ==
[2023-05-29 19:09] LABS: #Basophils 0.1 thou/uL (0.0-0.2); #Eosinphils 0.1 thou/uL (0.0-0.7); #Neutrophils 4.6 thou/uL (1.40-6.50); %Eosinophils 1.7 % (0.0-10.0); %Lymphocytes 28.4 % (21.0-51.0); %Monocytes 11.9 % (0.0-10.0); %Neutrophils 56.8 % (42.0-75.0); Hematocrit 49.1 % (42.0-52.0); Hemoglobin 16.4 g/dL (14.0-18.0); Mean Corpuscular HGB CONC 33.4 g/dL (32.0-36.0); Mean Corpuscular Hemoglobin 29.2 pg (27.0-31.0); Mean Corpuscular Volume 87.5 fl (78.0-98.0); Mean Platelet Volume 12.5 fL (7.4-10.4); Platelet Count 198 10x3/uL (130-400); Red Blood Cell (RBC) Count 5.61 mill/uL (4.70-6.10); White Blood Cell (WBC) Count 8.1 10x3/uL (4.8-10.8)
[2023-05-29 19:27] LABS: ALT (SGPT) 24 U/L (8-55); AST (SGOT) 22 U/L (5-34); Albumin 4.1 g/dL (3.5-5.0); Alkaline Phosphatase 59 U/L (40-110); Anion Gap 11 mmol/L (10-20); BUN (Urea Nitrogen) 21 mg/dL (8.4-25.7); Bilirubin, Total 1.2 mg/dL (0.2-1.2); Calc. Creatinine Clearance 0 mL/min (70-130); Calcium 9.5 mg/dL (7.8-10.44); Carbon Dioxide 27 mmol/L (22-29); Chloride 101 mmol/L (98-107); Estimated GFR 32; Globulin 3.4 g/dL (2.4-3.5); Glucose 84 mg/dL (70-105); Lipase 22 U/L (8-78); Potassium 2.8 mmol/L (3.5-5.1); Protein, Total 7.5 g/dL (6.0-8.3); Sodium 136 mmol/L (136-145)
[2023-05-29] MEDS ORDERED: Potassium Bicarbonate/Cit Ac 20 MEQ TAB ONE (19:34)
[2023-05-29 19:37] LABS: Critical Call Chem Troponin I NUR.RG3@1937; Troponin I 0.214 ng/mL (< 0.028)
[2023-05-29 19:48] LABS: SARS-CoV-2 NAA Rapid Test Not Detected (NotDetected)
[2023-05-29 21:18] LABS: Bacteria/HPF None Seen HPF (None Seen); Bilirubin Negative (Negative); Blood, Urine Negative (Negative); CAUTI Indications for Culture Alt mental st,lethar; Clarity Clear (Clear); Glucose, Urine (Dipstick) Normal (Negative); Ketone, Urine Negative (Negative); Leukocyte Negative Leu/uL (Negative); Nitrite Negative (Negative); Protein, Urine (Dipstick) 30 mg/dL (Neg-Trace); RBC/HPF None Seen HPF (0-3); Specific Gravity, Urine 1.005 (1.002-1.036); Squamous Epithelial None Seen HPF (0-3); Urobilinogen Normal mg/dL (Less than 2); WBC/HPF None Seen HPF (0-3); pH, Urine 6.5 (5.0-9.0)
[2023-05-29 21:20] LABS: Urine Culture Reflex No No
[2023-05-29] MEDS ORDERED: Acetaminophen 325 MG TAB PO PRN (22:32)
[2023-05-29] MEDS ORDERED: hydrALAZINE 20 MG/ML VIAL SLOW IVP PRN (22:34)
[2023-05-29] MEDS ORDERED: D5 1/2 NS w/20 mEq KCL 1,000 ML IV SCH (22:45)
[2023-05-29] MEDS ORDERED: Ondansetron ODT 4 MG TAB SL PRN (22:45)
[2023-05-29] MEDS ORDERED: Ondansetron PF 4 MG/2 ML Vial IVP PRN (22:45)
[2023-05-29 23:59] LABS: Troponin I 0.193 ng/mL (< 0.028)
[2023-05-30 01:06] LABS: Magnesium 2.1 mg/dL (1.6-2.6); Phosphorus 2.6 mg/dL (2.3-4.7)
[2023-05-30] MEDS ORDERED: Potassium Chloride 20 MEQ (100 mL) BAG ONE ×3 (02:37→14:56)
[2023-05-30 02:44] VITALS: BMI 33.2
[2023-05-30] MEDS: Potassium Chloride 20 MEQ in Premix 1 BAG IVPB SCH ×4 (02:45→15:47)
[2023-05-30] MEDS: D5 LR w/20 mEq KCL 1,000 ML IV SCH ×2 (02:45→15:46)
[2023-05-30 03:03] LABS: #Basophils 0.1 thou/uL (0.0-0.2); #Monocytes 0.9 thou/uL (0.11-0.59); #Neutrophils 10.4 thou/uL (1.40-6.50); %Basophils 0.4 % (0.0-1.0); %Eosinophils 0.2 % (0.0-10.0); %Lymphocytes 12.4 % (21.0-51.0); %Monocytes 6.7 % (0.0-10.0); %Neutrophils 80.1 % (42.0-75.0); Hematocrit 50.1 % (42.0-52.0); Hemoglobin 16.8 g/dL (14.0-18.0); Mean Corpuscular HGB CONC 33.5 g/dL (32.0-36.0); Mean Corpuscular Hemoglobin 29.7 pg (27.0-31.0); Mean Corpuscular Volume 88.7 fl (78.0-98.0); Mean Platelet Volume 12.3 fL (7.4-10.4); Platelet Count 218 10x3/uL (130-400); RBC Distribution Width 14.1 % (11.5-14.5); Red Blood Cell (RBC) Count 5.65 mill/uL (4.70-6.10)
[2023-05-30 03:12] LABS: Potassium 3.1 mmol/L (3.5-5.1)
[2023-05-30 03:23] LABS: Troponin I 0.171 ng/mL (< 0.028)
[2023-05-30 03:24] LABS: ALT (SGPT) 25 U/L (8-55); AST (SGOT) 22 U/L (5-34); Albumin 3.8 g/dL (3.5-5.0); Alkaline Phosphatase 64 U/L (40-110); Anion Gap 17 mmol/L (10-20); BUN (Urea Nitrogen) 20 mg/dL (8.4-25.7); Bilirubin, Total 1.5 mg/dL (0.2-1.2); Calc. Creatinine Clearance 54 mL/min (70-130); Calcium 9.1 mg/dL (7.8-10.44); Carbon Dioxide 21 mmol/L (22-29); Cardiac Risk 2.8 (Less than 4.5); Chloride 103 mmol/L (98-107); Cholesterol 137 mg/dl (< 200 Desired); Estimated GFR 34; Globulin 3.4 g/dL (2.4-3.5); Glucose 103 mg/dL (70-105); HDL Cholesterol 49 mg/dL (>60 Neg Risk); LDL Cholesterol, Calculated 79 mg/dL; Potassium 3.1 mmol/L (3.5-5.1); Protein, Total 7.2 g/dL (6.0-8.3); Sodium 138 mmol/L (136-145); Triglycerides 44 mg/dL (Less than 150)
[2023-05-30] MEDS ORDERED: Potassium Chloride 20 MEQ TAB PO SCH (04:15)
[2023-05-30 06:26] LABS: Troponin I 0.187 ng/mL (< 0.028)
[2023-05-30] MEDS ORDERED: Aspirin 325 MG TAB PO SCH (09:00)
[2023-05-30] MEDS ORDERED: DULoxetine 60 MG CAP ONE (09:22)
[2023-05-30] MEDS ORDERED: Aspirin 325 MG TAB ONE (09:22)
[2023-05-30] MEDS ORDERED: Potassium Chloride 20 MEQ TAB ONE (09:22)
[2023-05-30] MEDS ORDERED: Tamsulosin HCl 0.4 MG CAP ONE (09:22)
[2023-05-30] MEDS ORDERED: Enoxaparin 40 MG (0.4 mL) SYRINGE ONE (09:22)
[2023-05-30] MEDS ORDERED: Famotidine 20 MG TAB ONE (09:22)
[2023-05-30] MEDS ORDERED: Famotidine/PF 20 mg/2ml Vial ONE (09:23)
[2023-05-30] MEDS: Enoxaparin 40 MG (0.4 mL) SYRINGE SC SCH (09:40)
[2023-05-30] MEDS: DULoxetine 60 MG CAP PO SCH (09:41)
[2023-05-30] MEDS: Tamsulosin HCl 0.4 MG CAP PO SCH (09:42)
[2023-05-30] MEDS: Famotidine 20 MG TAB PO SCH (09:42)
[2023-05-30] MEDS: Famotidine/PF 20 mg/2ml Vial SLOW IVP SCH (09:44)
[2023-05-30] MEDS: Potassium Chloride 20 MEQ TAB PO SCH ×2 (09:45→15:43)
[2023-05-30 15:45] LABS: INR-International Normal Ratio 1.2; Prothrombin Time 15.1 sec (12.0-14.7)
[2023-05-30] MEDS: Aspirin 81 mg Enteric Coated Tablet PO SCH (20:44)
[2023-05-30] MEDS: Rosuvastatin 20 MG TAB PO SCH (20:44)
[2023-05-31] MEDS: D5 LR w/20 mEq KCL 1,000 ML IV SCH ×2 (05:02→17:22)
[2023-05-31 08:20] LABS: #Basophils 0.1 thou/uL (0.0-0.2); #Eosinphils 0.2 thou/uL (0.0-0.7); #Monocytes 0.8 thou/uL (0.11-0.59); #Neutrophils 4.9 thou/uL (1.40-6.50); %Basophils 0.9 % (0.0-1.0); %Eosinophils 2.4 % (0.0-10.0); %Lymphocytes 25.8 % (21.0-51.0); %Monocytes 9.4 % (0.0-10.0); %Neutrophils 61.2 % (42.0-75.0); Hemoglobin 15.8 g/dL (14.0-18.0); Mean Corpuscular HGB CONC 33.6 g/dL (32.0-36.0); Mean Corpuscular Hemoglobin 29.5 pg (27.0-31.0); Mean Corpuscular Volume 87.9 fl (78.0-98.0); Platelet Count 191 10x3/uL (130-400); RBC Distribution Width 14.5 % (11.5-14.5); Red Blood Cell (RBC) Count 5.35 mill/uL (4.70-6.10)
[2023-05-31] MEDS ORDERED: Regadenoson 0.4 MG/5 ML SYRINGE ONE (08:32)
[2023-05-31 08:46] LABS: Anion Gap 9 mmol/L (10-20); BUN (Urea Nitrogen) 15 mg/dL (8.4-25.7); Calc. Creatinine Clearance 64 mL/min (70-130); Calcium 8.9 mg/dL (7.8-10.44); Carbon Dioxide 25 mmol/L (22-29); Chloride 110 mmol/L (98-107); Estimated GFR 42; Glucose 98 mg/dL (70-105); Potassium 3.3 mmol/L (3.5-5.1); Sodium 141 mmol/L (136-145)
[2023-05-31] MEDS ORDERED: Potassium Chloride 20 MEQ TAB PO SCH ×2 (10:00→12:00)
[2023-05-31] MEDS ORDERED: Enoxaparin 100 MG (1 mL) SYRINGE SC SCH (10:15)
[2023-05-31 11:02] LABS: Magnesium 1.7 mg/dL (1.6-2.6)
[2023-05-31] MEDS: DULoxetine 60 MG CAP PO SCH (11:15)
[2023-05-31] MEDS: Famotidine/PF 20 mg/2ml Vial SLOW IVP SCH (11:15)
[2023-05-31] MEDS: Tamsulosin HCl 0.4 MG CAP PO SCH (11:16)
[2023-05-31] MEDS: Famotidine 20 MG TAB PO SCH (11:16)
[2023-05-31] MEDS: Enoxaparin 40 MG (0.4 mL) SYRINGE SC SCH (13:55)
[2023-05-31] MEDS ORDERED: Magnesium 2 GM/50 ML(in water) 2 GM in Premix 1 BAG IVPB SCH (15:45)
[2023-05-31 17:16] LABS: Magnesium 1.7 mg/dL (1.6-2.6)
[2023-05-31] MEDS: Enoxaparin 100 MG (1 mL) SYRINGE SC SCH (20:56)
[2023-05-31] MEDS: Rosuvastatin 20 MG TAB PO SCH (20:56)
[2023-05-31] MEDS: Aspirin 81 mg Enteric Coated Tablet PO SCH (20:56)
[2023-05-31] MEDS ORDERED: hydrALAZINE 25 MG TAB PO SCH (23:30)
[2023-05-31] MEDS ORDERED: Carvedilol 25 MG TAB PO SCH (23:30)
[2023-06-01 06:02] LABS: #Basophils 0.1 thou/uL (0.0-0.2); #Eosinphils 0.3 thou/uL (0.0-0.7); #Monocytes 0.9 thou/uL (0.11-0.59); #Neutrophils 6.4 thou/uL (1.40-6.50); %Basophils 0.8 % (0.0-1.0); %Lymphocytes 22.5 % (21.0-51.0); %Neutrophils 64.4 % (42.0-75.0); Hematocrit 46.9 % (42.0-52.0); Hemoglobin 15.6 g/dL (14.0-18.0); Mean Corpuscular HGB CONC 33.3 g/dL (32.0-36.0); Mean Corpuscular Hemoglobin 29.4 pg (27.0-31.0); Mean Corpuscular Volume 88.3 fl (78.0-98.0); Mean Platelet Volume 13.2 fL (7.4-10.4); Platelet Count 204 10x3/uL (130-400); RBC Distribution Width 14.6 % (11.5-14.5); Red Blood Cell (RBC) Count 5.31 mill/uL (4.70-6.10)
[2023-06-01 06:33] LABS: Anion Gap 12 mmol/L (10-20); BUN (Urea Nitrogen) 11 mg/dL (8.4-25.7); Calc. Creatinine Clearance 70 mL/min (70-130); Calcium 9.1 mg/dL (7.8-10.44); Carbon Dioxide 23 mmol/L (22-29); Chloride 110 mmol/L (98-107); Estimated GFR 47; Glucose 98 mg/dL (70-105); Potassium 3.2 mmol/L (3.5-5.1); Sodium 142 mmol/L (136-145)
[2023-06-01] MEDS ORDERED: Magnesium 2 GM/50 ML(in water) 2 GM in Premix 1 BAG IVPB SCH (08:30)
[2023-06-01] MEDS ORDERED: Potassium Chloride 20 MEQ TAB PO SCH (08:30)
[2023-06-01] MEDS: Tamsulosin HCl 0.4 MG CAP PO SCH (08:49)
[2023-06-01] MEDS: Enoxaparin 100 MG (1 mL) SYRINGE SC SCH ×2 (08:50→20:08)
[2023-06-01] MEDS: DULoxetine 60 MG CAP PO SCH (08:50)
[2023-06-01] MEDS: Famotidine 20 MG TAB PO SCH (08:50)
[2023-06-01] MEDS ORDERED: Magnesium Oxide 400 MG TAB PO SCH (09:00)
[2023-06-01] MEDS: D5 LR w/20 mEq KCL 1,000 ML IV SCH (11:36)
[2023-06-01] MEDS ORDERED: CATH FS PRN (13:15)
[2023-06-01 14:32] LABS: Magnesium 2.2 mg/dL (1.6-2.6)
[2023-06-01] MEDS: Rosuvastatin 20 MG TAB PO SCH (20:07)
[2023-06-01] MEDS: Aspirin 81 mg Enteric Coated Tablet PO SCH (20:08)
[2023-06-02] MEDS: D5 LR w/20 mEq KCL 1,000 ML IV SCH (01:24)
[2023-06-02] MEDS: Famotidine 20 MG TAB PO SCH (05:14)
[2023-06-02] MEDS: DULoxetine 60 MG CAP PO SCH (05:14)
[2023-06-02 05:40] VITALS: TEMP 98.4
[2023-06-02] MEDS ORDERED: fentaNYL 50 mcg/mL 1 mL Vial ONE (06:11)
[2023-06-02] MEDS ORDERED: Heparin 10,000 UNITS/ 10 ML VIAL ONE (06:12)
[2023-06-02] MEDS ORDERED: Nitroglycerin 50 MG/250 ML BOT 0 ML ONE (06:12)
[2023-06-02] MEDS ORDERED: Midazolam HCl 2 mg/2 ml Vial ONE (06:12)
[2023-06-02 07:29] LABS: Anion Gap 11 mmol/L (10-20); BUN (Urea Nitrogen) 9 mg/dL (8.4-25.7); Calc. Creatinine Clearance 67 mL/min (70-130); Calcium 9.1 mg/dL (7.8-10.44); Carbon Dioxide 22 mmol/L (22-29); Chloride 110 mmol/L (98-107); Estimated GFR 44; Glucose 98 mg/dL (70-105); Potassium 3.4 mmol/L (3.5-5.1); Sodium 140 mmol/L (136-145)
[2023-06-02 07:52] LABS: Hematocrit 49.3 % (42.0-52.0); Hemoglobin 16.5 g/dL (14.0-18.0); Manual Diff?? YES; Mean Corpuscular HGB CONC 33.5 g/dL (32.0-36.0); Mean Corpuscular Hemoglobin 29.3 pg (27.0-31.0); Mean Corpuscular Volume 87.6 fl (78.0-98.0); Mean Platelet Volume 12.8 fL (7.4-10.4); Platelet Count 197 10x3/uL (130-400); RBC Distribution Width 14.6 % (11.5-14.5); Red Blood Cell (RBC) Count 5.63 mill/uL (4.70-6.10); White Blood Cell (WBC) Count 9.7 10x3/uL (4.8-10.8)
[2023-06-02 07:55] VITALS: BP 164/98
[2023-06-02 08:00] LABS: Delete Auto Diff?? YES
[2023-06-02 08:11] LABS: Anion Gap 12 mmol/L (10-20); BUN (Urea Nitrogen) 9 mg/dL (8.4-25.7); Calc. Creatinine Clearance 69 mL/min (70-130); Calcium 9.2 mg/dL (7.8-10.44); Carbon Dioxide 21 mmol/L (22-29); Chloride 110 mmol/L (98-107); Estimated GFR 46; Glucose 96 mg/dL (70-105); Potassium 3.5 mmol/L (3.5-5.1); Sodium 139 mmol/L (136-145)
[2023-06-02] MEDS ORDERED: Electrolyte Replacement Protocol 1 EACH FS SCH (08:15)
[2023-06-02 08:33] LABS: Burr Cells SLIGHT = 2-5 cells HPF (0-1); CellaVision Operator ID LAB.GE; Eosinophils 5 % (0-10); Large Platelets 10.8 % (0-5); Lymphocytes 8 % (21-51); Monocytes 8 % (0-10); Neutrophil 75 % (42-75); Platelet Adequacy Comment Platelets Normal; Polychromasia SLIGHT = 2-3 cells HPF (0-2); Reactive Lymphocytes 3 % (0-10); Total Cell Count 102
[2023-06-02] MEDS ORDERED: Amlodipine 10 MG TAB PO SCH (08:45)
[2023-06-02] MEDS ORDERED: Carvedilol 25 MG TAB PO SCH (08:45)
[2023-06-02] MEDS ORDERED: Electrolyte Replacement Protocol FS PRN (08:45)
[2023-06-02] MEDS ORDERED: Magnesium Oxide 400 MG TAB PO SCH (09:00)
[2023-06-02] MEDS ORDERED: Clopidogrel Bisulfate 75 MG TAB PO SCH (09:00)
[2023-06-02] MEDS: Tamsulosin HCl 0.4 MG CAP PO SCH (09:12)
== END 2023-06-02 10:00 | disposition home or self-care (01) | DRG 281 ==
LOC: ERS 18:27 → ERHOLD 22:34 → OBSVTOIN 05-30 09:45 → 2SE 05-30 16:00
PROVIDERS: ADMIT Internal Medicine; ATTEND Family Medicine
DX: I21.4 Non-ST elevation (NSTEMI) myocardial infarction (principal); I69.354 Hemiplegia and hemiparesis following cerebral infarction affecting left non-dominant side; N17.9 Acute kidney failure, unspecified; I12.9 Hypertensive chronic kidney disease with stage 1 through stage 4 chronic kidney disease, or unspecified chronic kidney disease; E87.6 Hypokalemia; N40.0 Benign prostatic hyperplasia without lower urinary tract symptoms; Z11.52 Encounter for screening for COVID-19; Z79.82 Long term (current) use of aspirin; Z79.899 Other long term (current) drug therapy; F41.9 Anxiety disorder, unspecified; F32.A Depression, unspecified; N18.30 Chronic kidney disease, stage 3 unspecified
CPT/HCPCS: 36415; 70450; 70551; 71045; 78452; 80048; 80053; 80061; 81001; 82550; 83605; 83690; 83735; 84100; 84146; 84484; 85025; 85610; 85730; 87040; 93005; 93017; 93306; 93880; 93970; 96372; 96374; 96375; 96376; A9502; G0378; J1644; J1650; J2250; J2785; J3010; J3475; J3480; S0028

== ENCOUNTER 2023-06-02 23:58 | Inpatient (IN) | payer OTHER, SELFPAY ==
[2023-06-03] MEDS ORDERED: Acetaminophen 325 MG TAB PO PRN (03:38)
[2023-06-03] MEDS ORDERED: Ondansetron ODT 4 MG TAB PO PRN (03:38)
[2023-06-03] MEDS ORDERED: Ondansetron PF 4 MG/2 ML Vial IVP PRN (03:38)
[2023-06-03] MEDS ORDERED: Electrolyte Replacement Protocol FS SCH (03:45)
[2023-06-03 03:47] LABS: #Basophils 0.1 thou/uL (0.0-0.2); #Eosinphils 0.1 thou/uL (0.0-0.7); #Monocytes 0.8 thou/uL (0.11-0.59); #Neutrophils 6.8 thou/uL (1.40-6.50); %Basophils 0.5 % (0.0-1.0); %Eosinophils 1.1 % (0.0-10.0); %Lymphocytes 18.2 % (21.0-51.0); %Monocytes 7.9 % (0.0-10.0); %Neutrophils 71.9 % (42.0-75.0); Hematocrit 47.8 % (42.0-52.0); Hemoglobin 16.1 g/dL (14.0-18.0); Mean Corpuscular HGB CONC 33.7 g/dL (32.0-36.0); Mean Corpuscular Hemoglobin 29.4 pg (27.0-31.0); Mean Corpuscular Volume 87.2 fl (78.0-98.0); Mean Platelet Volume 13.1 fL (7.4-10.4); Platelet Count 197 10x3/uL (130-400); RBC Distribution Width 14.4 % (11.5-14.5); Red Blood Cell (RBC) Count 5.48 mill/uL (4.70-6.10); White Blood Cell (WBC) Count 9.5 10x3/uL (4.8-10.8)
[2023-06-03 04:19] LABS: Troponin I 0.183 ng/mL (< 0.028)
[2023-06-03 04:20] LABS: ALT (SGPT) 30 U/L (8-55); AST (SGOT) 23 U/L (5-34); Albumin 3.6 g/dL (3.5-5.0); Alkaline Phosphatase 56 U/L (40-110); Anion Gap 14 mmol/L (10-20); BUN (Urea Nitrogen) 14 mg/dL (8.4-25.7); Bilirubin, Total 1.2 mg/dL (0.2-1.2); Calc. Creatinine Clearance 0 mL/min (70-130); Calcium 9.3 mg/dL (7.8-10.44); Carbon Dioxide 21 mmol/L (22-29); Chloride 106 mmol/L (98-107); Estimated GFR 41; Globulin 3.3 g/dL (2.4-3.5); Glucose 84 mg/dL (70-105); Lipase 9 U/L (8-78); Magnesium 1.8 mg/dL (1.6-2.6); Potassium 3.5 mmol/L (3.5-5.1); Protein, Total 6.9 g/dL (6.0-8.3); Sodium 137 mmol/L (136-145)
[2023-06-03] MEDS ORDERED: Sodium Chloride 0.9% 1,000 ML IV SCH (04:45)
[2023-06-03 07:36] LABS: Critical Call Chem Troponin I ERS.JAN@0935; Troponin I 0.218 ng/mL (< 0.028)
[2023-06-03] MEDS ORDERED: Potassium Chloride 20 MEQ TAB PO SCH (08:00)
[2023-06-03] MEDS ORDERED: Magnesium 2 GM/50 ML(in water) 2 GM in Premix 1 BAG IVPB SCH (08:00)
[2023-06-03] MEDS ORDERED: Enoxaparin 40 MG (0.4 mL) SYRINGE SC SCH (09:00)
[2023-06-03] MEDS ORDERED: Aspirin Chewable 81 MG TAB ONE (09:30)
[2023-06-03] MEDS ORDERED: DULoxetine 60 MG CAP ONE (09:30)
[2023-06-03] MEDS ORDERED: Carvedilol 25 MG TAB ONE (09:30)
[2023-06-03] MEDS ORDERED: Tamsulosin HCl 0.4 MG CAP ONE (09:30)
[2023-06-03] MEDS ORDERED: Clopidogrel Bisulfate 75 MG TAB ONE (09:30)
[2023-06-03] MEDS ORDERED: Potassium Chloride 20 MEQ TAB ONE (09:30)
[2023-06-03] MEDS: Amlodipine 10 MG TAB PO SCH (09:31)
[2023-06-03] MEDS: Aspirin 81 mg Enteric Coated Tablet PO SCH (09:31)
[2023-06-03] MEDS: Clopidogrel Bisulfate 75 MG TAB PO SCH (09:31)
[2023-06-03] MEDS: cloNIDine 0.3 MG TAB PO SCH ×2 (09:31→20:48)
[2023-06-03] MEDS: Carvedilol 25 MG TAB PO SCH ×2 (09:31→20:49)
[2023-06-03] MEDS: Tamsulosin HCl 0.4 MG CAP PO SCH (09:31)
[2023-06-03] MEDS ORDERED: Enoxaparin 40 MG (0.4 mL) SYRINGE ONE (09:31)
[2023-06-03] MEDS: DULoxetine 60 MG CAP PO SCH (09:31)
[2023-06-03] MEDS ORDERED: Magnesium 2 GM/50 ML BAG (IN WATER) ONE (09:31)
[2023-06-03] MEDS ORDERED: Iopamidol-370 76% 500 ML MDV (1 ML CHARGE) ONE (11:13)
[2023-06-03 17:46] VITALS: BMI 31.8
[2023-06-03] MEDS ORDERED: Communication Order-Pharmacy FS SCH (18:45)
[2023-06-03] MEDS: Sodium Chloride 0.9% 1,000 ML IV SCH (19:00)
[2023-06-03] MEDS: Rosuvastatin 20 MG TAB PO SCH (20:48)
[2023-06-04] MEDS: Sodium Chloride 0.9% 1,000 ML IV SCH (04:01)
[2023-06-04 05:59] LABS: #Basophils 0.1 thou/uL (0.0-0.2); #Eosinphils 0.2 thou/uL (0.0-0.7); #Monocytes 0.8 thou/uL (0.11-0.59); #Neutrophils 5.4 thou/uL (1.40-6.50); %Basophils 0.7 % (0.0-1.0); %Eosinophils 2.8 % (0.0-10.0); %Lymphocytes 20.8 % (21.0-51.0); %Monocytes 9.6 % (0.0-10.0); %Neutrophils 65.6 % (42.0-75.0); Hematocrit 43.9 % (42.0-52.0); Hemoglobin 14.9 g/dL (14.0-18.0); Mean Corpuscular HGB CONC 33.9 g/dL (32.0-36.0); Mean Corpuscular Hemoglobin 29.5 pg (27.0-31.0); Mean Corpuscular Volume 86.9 fl (78.0-98.0); Mean Platelet Volume 13.3 fL (7.4-10.4); Platelet Count 165 10x3/uL (130-400); RBC Distribution Width 14.5 % (11.5-14.5); Red Blood Cell (RBC) Count 5.05 mill/uL (4.70-6.10); White Blood Cell (WBC) Count 8.3 10x3/uL (4.8-10.8)
[2023-06-04 06:49] LABS: Anion Gap 11 mmol/L (10-20); BUN (Urea Nitrogen) 18 mg/dL (8.4-25.7); Calc. Creatinine Clearance 67 mL/min (70-130); Calcium 8.5 mg/dL (7.8-10.44); Carbon Dioxide 23 mmol/L (22-29); Chloride 110 mmol/L (98-107); Estimated GFR 47; Glucose 83 mg/dL (70-105); Potassium 3.5 mmol/L (3.5-5.1); Sodium 140 mmol/L (136-145)
[2023-06-04] MEDS ORDERED: Potassium Bicarbonate/Cit Ac 20 MEQ TAB PO SCH (09:45)
[2023-06-04] MEDS: Amlodipine 10 MG TAB PO SCH (10:57)
[2023-06-04] MEDS: DULoxetine 60 MG CAP PO SCH (10:57)
[2023-06-04] MEDS: cloNIDine 0.3 MG TAB PO SCH ×2 (10:57→20:22)
[2023-06-04] MEDS: Tamsulosin HCl 0.4 MG CAP PO SCH (10:57)
[2023-06-04] MEDS: Aspirin 81 mg Enteric Coated Tablet PO SCH (10:58)
[2023-06-04] MEDS: Carvedilol 25 MG TAB PO SCH ×2 (10:58→20:26)
[2023-06-04] MEDS: Clopidogrel Bisulfate 75 MG TAB PO SCH (10:58)
[2023-06-04] MEDS ORDERED: Nitroglycerin 50 MG/250 ML BOT 0 ML ONE (12:15)
[2023-06-04] MEDS ORDERED: Heparin 10,000 UNITS/ 10 ML VIAL ONE (12:15)
[2023-06-04] MEDS ORDERED: fentaNYL 50 mcg/mL 1 mL Vial ONE (12:15)
[2023-06-04] MEDS ORDERED: Midazolam HCl 2 mg/2 ml Vial ONE (12:15)
[2023-06-04] MEDS ORDERED: Nitroglycerin 0.4 MG TAB (25 Tab Bottle) SL PRN (13:23)
[2023-06-04] MEDS ORDERED: Acetaminophen/Codeine 30-300mg Tablet PO PRN (13:23)
[2023-06-04] MEDS ORDERED: Sodium Chloride 0.9% 200 ML IV PRN (13:23)
[2023-06-04] MEDS ORDERED: Sodium Chloride 0.9% 500 ML IV SCH (13:30)
[2023-06-04] MEDS: Rosuvastatin 20 MG TAB PO SCH (20:22)
[2023-06-05 04:55] LABS: #Basophils 0.1 thou/uL (0.0-0.2); #Eosinphils 0.3 thou/uL (0.0-0.7); #Monocytes 0.7 thou/uL (0.11-0.59); #Neutrophils 4.6 thou/uL (1.40-6.50); %Basophils 0.7 % (0.0-1.0); %Eosinophils 3.5 % (0.0-10.0); %Lymphocytes 23.8 % (21.0-51.0); %Monocytes 9.9 % (0.0-10.0); %Neutrophils 61.7 % (42.0-75.0); Hematocrit 44.1 % (42.0-52.0); Hemoglobin 14.7 g/dL (14.0-18.0); Mean Corpuscular HGB CONC 33.3 g/dL (32.0-36.0); Mean Corpuscular Hemoglobin 29.2 pg (27.0-31.0); Mean Corpuscular Volume 87.7 fl (78.0-98.0); Platelet Count 167 10x3/uL (130-400); RBC Distribution Width 14.5 % (11.5-14.5); Red Blood Cell (RBC) Count 5.03 mill/uL (4.70-6.10); White Blood Cell (WBC) Count 7.4 10x3/uL (4.8-10.8)
[2023-06-05 05:21] LABS: Anion Gap 6 mmol/L (10-20); BUN (Urea Nitrogen) 19 mg/dL (8.4-25.7); Calc. Creatinine Clearance 70 mL/min (70-130); Calcium 8.6 mg/dL (7.8-10.44); Carbon Dioxide 25 mmol/L (22-29); Chloride 110 mmol/L (98-107); Estimated GFR 50; Glucose 85 mg/dL (70-105); Potassium 3.7 mmol/L (3.5-5.1); Sodium 137 mmol/L (136-145)
[2023-06-05] MEDS: Carvedilol 25 MG TAB PO SCH (09:39)
[2023-06-05] MEDS: Tamsulosin HCl 0.4 MG CAP PO SCH (09:41)
[2023-06-05] MEDS: Aspirin 81 mg Enteric Coated Tablet PO SCH (09:48)
[2023-06-05] MEDS: DULoxetine 60 MG CAP PO SCH (09:48)
[2023-06-05] MEDS: cloNIDine 0.3 MG TAB PO SCH (09:49)
[2023-06-05] MEDS: Amlodipine 10 MG TAB PO SCH (09:49)
[2023-06-05 12:08] VITALS: TEMP 97.7
[2023-06-05 16:01] VITALS: BP 139/78
== END 2023-06-05 18:09 | disposition home or self-care (01) | DRG 280 ==
LOC: ERS 23:58 → ERHOLD 06-03 03:38 → 2NO 06-03 17:37 → OBSVTOIN 06-04 14:51
PROVIDERS: ADMIT Physician Assistant; ATTEND Internal Medicine
PROC: 4A023N7 Measurement of Cardiac Sampling and Pressure, Left Heart, Percutaneous Approach (ICD-10-PCS; principal; 2023-06-04)
PROC: B2111ZZ Fluoroscopy of Multiple Coronary Arteries using Low Osmolar Contrast (ICD-10-PCS; 2023-06-04)
PROC: B2151ZZ Fluoroscopy of Left Heart using Low Osmolar Contrast (ICD-10-PCS; 2023-06-04)
DX: I48.0 Paroxysmal atrial fibrillation (principal); I21.4 Non-ST elevation (NSTEMI) myocardial infarction; I50.33 Acute on chronic diastolic (congestive) heart failure; I21.A1 Myocardial infarction type 2; N17.9 Acute kidney failure, unspecified; I13.0 Hypertensive heart and chronic kidney disease with heart failure and stage 1 through stage 4 chronic kidney disease, or unspecified chronic kidney disease; N40.0 Benign prostatic hyperplasia without lower urinary tract symptoms; I25.10 Atherosclerotic heart disease of native coronary artery without angina pectoris; I08.3 Combined rheumatic disorders of mitral, aortic and tricuspid valves; N18.31 Chronic kidney disease, stage 3a; I25.2 Old myocardial infarction; Z98.890 Other specified postprocedural states; Z79.899 Other long term (current) drug therapy; Z79.82 Long term (current) use of aspirin; I69.398 Other sequelae of cerebral infarction
CPT/HCPCS: 36415; 71275; 80048; 80053; 83690; 83735; 83880; 84484; 85025; 93005; 93458; 94760; 96372; 96375; 97139; 99152; C1769; G0378; J1644; J1650; J2250; J3010; J3475; J7030; J7050; Q9967